=== PATIENT | female | born 1985 | race Caucasian/White ===

== ENCOUNTER 2017-08-30 15:15 | Emergency (ER) | payer OTHER ==
[2017-08-30 16:16] LABS: Urine Bacteria <20 /HPF (<20); Urine Culture Reflex Order NOT NEEDED; Urine RBC <5 /HPF (NONE SEEN)
[2017-08-30 16:17] LABS: Urine Blood NEGATIVE (NEG); Urine Glucose NEGATIVE (NEG); Urine Protein NEGATIVE (NEG); Urine pH 7.5 (5.0-7.0)
--- NOTE | 2017-08-30 16:40 | RAD REPORT ---
EXAM DESCRIPTION: US - OB Limited - 08/30/2017 4:26 pm CLINICAL HISTORY: no movement distress. Pelvic pain. COMPARISON: No comparisons FINDINGS: A limited examination was performed as per referring physician request. Twin A is in breech presentation. Normal movement was seen. heart rate of 148 beats per m inute was noted. Twin B is in vertex presentation. Normal movement was seen. heart rate 147 beats per tirso te was noted. The maternal adnexa show no worrisome findings. Qualitative amniotic fluid volumes are normal in both gestational sacs. IMPRESSION: Limited examination shows movement of twin gestations throughout the examination w ith normal heart rates for both chest stations.
--- NOTE | 2017-08-30 17:17 | EDPHYS ---
Physician Documentation [facility] Name: Betzaida Saldivar Age: 31 yrs Sex: Female : 1985 Arrival Date: 08/30/2017 Time: 15:18 Bed 26 Private MD: out of town, doctor ED Physician Deshaun Mojica HPI: 08/30 17:25 This 31 yrs old Female presents to ER via Ambulatory with complaints of 18 jr8 wks , no movement. 17:25 The patient presents to the emergency department with no movement. The estimated jr8 gestational age is 18 weeks. course: care: at a clinic, Leakage of Fluid: none appreciated, Ultrasound: the patient had an ultrasound, which was normal, Risk/complications: previous complications- uterine rupture. Previous pregnancies: in previous pregnancies patient has had. Associated signs and symptoms: The patient has no apparent associated signs or symptoms. The patient has not experienced similar symptoms in the past. The patient has not recently seen a physician. Stated that she was recently diagnosed with twins. Had not felt movement in a day or so. Wanted to make sure everything was ok . 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 - Social history:: Smoking status: Patient/guardian denies using tobacco. - Ebola Screening: : No symptoms or risks identified at this time. ROS: 17:25 Eyes: Negative for injury, pain, redness, and discharge, ENT: Negative for injury, jr8 pain, and discharge, Neck: Negative for injury, pain, and swelling, Cardiovascular: Negative for chest pain, palpitations, and edema, Respiratory: Negative for shortness of breath, cough, wheezing, and pleuritic chest pain, Abdomen/GI: Negative for abdominal pain, nausea, vomiting, diarrhea, and constipation, Back: Negative for injury and pain, MS/Extremity: Negative for injury and deformity, Skin: Negative for injury, rash, and discoloration, Neuro: Negative for headache, weakness, numbness, tingling, and seizure. Exam: 17:25 Eyes: Pupils equal round and reactive to light, extra-ocular motions intact. Lids and jr8 lashes normal. Conjunctiva and sclera are non-icteric and not injected. Cornea within normal limits. Periorbital areas with no swelling, redness, or edema. ENT: Nares patent. No nasal discharge, no septal abnormalities noted. Tympanic membranes are normal and external auditory canals are clear. Oropharynx with no redness, swelling, or masses, exudates, or evidence of obstruction, uvula midline. Mucous membranes moist. Neck: Trachea midline, no thyromegaly or masses palpated, and no cervical lymphadenopathy. Supple, full range of motion without nuchal rigidity, or vertebral point tenderness. No Meningismus. Cardiovascular: Regular rate and rhythm with a normal S1 and S2. No gallops, murmurs, or rubs. Normal PMI, no JVD. No pulse deficits. Respiratory: Lungs have equal breath sounds bilaterally, clear to auscultation and percussion. No rales, rhonchi or wheezes noted. No increased work of breathing, no retractions or nasal flaring. Abdomen/GI: Soft, non-tender, with normal bowel sounds. No distension or tympany. No guarding or rebound. No evidence of tenderness throughout. Back: No spinal tenderness. No costovertebral tenderness. Full range of motion. Skin: Warm, dry with normal turgor. Normal color with no rashes, no lesions, and no evidence of cellulitis. MS/ Extremity: Pulses equal, no cyanosis. Neurovascular intact. Full, normal range of motion. Neuro: Awake and alert, GCS 15, oriented to person, place, time, and situation. Cranial nerves II-XII grossly intact. Motor strength 5/5 in all extremities. Sensory grossly intact. Cerebellar exam normal. Normal gait. Vital Signs: 15:29 BP 129 / 90; Pulse 90; Resp 18; Pulse Ox 99% ; Weight 77.11 kg; Height 6 ft. 0 in. sv (182.88 cm); Pain 5/10; 16:00 BP 1 / ???; Pulse 92; Resp 18; Pulse Ox 99% ; tl3 15:29 Body Mass Index 23.06 (77.11 kg, 182.88 cm) MDM: 16:52 Patient medically screened. jr8 17:15 Data reviewed: vital signs, nurses notes, lab test result(s), radiologic studies, jr8 ultrasound, and as a result, I will discharge patient. Data interpreted: Pulse oximetry: on room air is 99 %. Interpretation: normal. Counseling: I had a detailed discussion with the patient and/or guardian regarding: the historical points, exam findings, and any diagnostic results supporting the discharge/admit diagnosis, lab results, radiology results, the need for outpatient follow up, an OB/Gyne specialist, to return to the emergency department if symptoms worsen or persist or if there are any questions or concerns that arise at home. 08/30 15:33 Order name: Urine Microscopic Only; Complete Time: 16:43 rn 08/30 16:05 Order name: Urine Dipstick--Ancillary (enter results); Complete Time: 16:43 dh3 08/30 15:33 Order name: Urine Dipstick-Ancillary (obtain specimen); Complete Time: 15:57 rn 08/30 15:33 Order name: OB Limited; Complete Time: 16:43 rn 08/30 16:06 Order name: Urine --Ancillary (enter results); Complete Time: 16:43 dh3 Administered Medications: No medications were administered Disposition: 18:36 Co-signature as Attending Physician, Deshaun Mojica MD. rn Disposition: 08/30/17 17:17 Discharged to Home. Impression: state. - Condition is Stable. - Discharge Instructions: Medicines During , Heartburn During , Second Trimester of , Kncl-sz-Hvud. - Medication Reconciliation Form, Thank You Letter, Antibiotic Education, Prescription Opioid Use form. - Follow up: Private Physician; When: 2 - 3 days; Reason: Recheck today's complaints, Continuance of care, Re-evaluation by your physician. - Problem is new. - Symptoms have improved. Signatures: Dispatcher [employer] Darlene Sharp RN RN sv Nieto, Roman, MD MD rn Roszak, Josh, PA PA jr8 Jami Vila RN RN tl3 Corrections: (The following items were deleted from the chart) 17:17 17:17 08/30/2017 17:17 Discharged to Home. Impression: state; 18 weeks jr8 gestation of . Condition is Stable. Forms are Medication Reconciliation Form, Thank You Letter, Antibiotic Education, Prescription Opioid Use. Follow up: Private Physician; When: 2 - 3 days; Reason: Recheck today's complaints, Continuance of care, Re-evaluation by your physician. Problem is new. Symptoms have improved. jr8 17:45 17:17 08/30/2017 17:17 Discharged to Home. Impression: state. Condition is tl3 Stable. Forms are Medication Reconciliation Form, Thank You Letter, Antibiotic Education, Prescription Opioid Use. Follow up: Private Physician; When: 2 - 3 days; Reason: Recheck today's complaints, Continuance of care, Re-evaluation by your physician. Problem is new. Symptoms have improved. jr8
--- NOTE | 2017-08-30 17:17 | ER ---
Nurse's Notes [facility] Name: Betzaida Saldivar Age: 31 yrs Sex: Female : 1985 Arrival Date: 08/30/2017 Time: 15:18 Bed 26 Private MD: out of town, doctor Diagnosis: state Presentation: 08/30 15:27 Presenting complaint: Patient states: decreased movement x 2 days. Pt is only sv aware that she is having twins by an US that was done at [facility]. Transition of care: patient was not received from another setting of care. Onset of symptoms was August 28, 2017. Risk Assessment: Do you want to hurt yourself or someone else? Patient reports no desire to harm self or others. Care prior to arrival: None. 15:27 Method Of Arrival: Ambulatory sv 15:27 Acuity: TIKI 3 sv 18:34 Initial Sepsis Screen: Does the patient meet any 2 criteria? No. Patient's initial tl3 sepsis screen is negative. Does the patient have a suspected source of infection? No. Patient's initial sepsis screen is negative. Triage Assessment: 15:27 General: Appears in no apparent distress. comfortable, Behavior is calm, cooperative, sv appropriate for age. Pain: Complains of pain in left lower quadrant Pain currently is 5 out of 10 on a pain scale. Pain began 2-3 days ago. Neuro: Level of Consciousness is awake, alert, obeys commands, Oriented to person, place, time, situation, Moves all extremities. Full function Gait is steady, Speech is normal. Respiratory: Respiratory effort is even, unlabored, Respiratory pattern is regular, symmetrical. Derm: Skin is normal. 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 - Social history:: Smoking status: Patient/guardian denies using tobacco. - Ebola Screening: : No symptoms or risks identified at this time. Screenin:12 Abuse screen: Denies threats or abuse. Nutritional screening: No deficits noted. tl3 Tuberculosis screening: No symptoms or risk factors identified. Fall Risk None identified. Assessment: 15:40 Reassessment: Informed Leana in US pt's urine test is positive. sv 17:12 General: Appears in no apparent distress. comfortable, well groomed, well developed, tl3 well nourished, Behavior is calm, cooperative, appropriate for age. Pain: Denies pain. Neuro: Level of Consciousness is awake, alert, obeys commands, Oriented to person, place, time, situation, Appropriate for age. Cardiovascular: Patient's skin is warm and dry. Respiratory: Airway is patent Respiratory effort is even, unlabored, Respiratory pattern is regular, symmetrical. GI: No signs and/or symptoms were reported involving the gastrointestinal system. : pt 5 month with twins, abdomen is round and firm Reports. : Reports not feeling movement of twins. EENT: No signs and/or symptoms were reported regarding the EENT system. Derm: No signs and/or symptoms reported regarding the dermatologic system. Musculoskeletal: No signs and/or symptoms reported regarding the musculoskeletal system. Vital Signs: 15:29 BP 129 / 90; Pulse 90; Resp 18; Pulse Ox 99% ; Weight 77.11 kg; Height 6 ft. 0 in. sv (182.88 cm); Pain 5/10; 16:00 BP 1 / ???; Pulse 92; Resp 18; Pulse Ox 99% ; tl3 15:29 Body Mass Index 23.06 (77.11 kg, 182.88 cm) sv ED Course: 15:18 Patient arrived in ED. mr 15:18 out of town, doctor is Private Physician. mr 15:28 Triage completed. sv 15:30 Arm band placed on left wrist. sv 15:30 Patient placed in waiting room. Urine obtained. Urine : positive. US ordered. sv 16:07 Patient taken to ultrasound. via wheelchair. lc3 16:26 US OB Limited In Process Unspecified. EDMS 16:33 Ultrasound completed. Patient tolerated well. Patient moved back from ultrasound. lc3 16:44 Diego Ji PA is PHCP. jr8 16:44 Deshaun Mojica MD is Attending Physician. jr8 17:12 Jami Vila, RN is Primary Nurse. tl3 17:12 Patient has correct armband on for positive identification. Bed in low position. Adult tl3 w/ patient. 17:12 No provider procedures requiring assistance completed. Patient did not have IV access tl3 during this emergency room visit. Administered Medications: No medications were administered Outcome: 17:17 Discharge ordered by MD. denise 17:45 Patient left the ED. tl3 18:33 Discharged to home ambulatory. tl3 18:33 Condition: good 18:33 Discharge instructions given to patient, family, Instructed on discharge instructions, follow up and referral plans. Signatures: Dispatcher [employer] EDMS Darlene Balderas, RN Yamini Gordon mr Diego Ji, Ricky Ham Tammy, FAM RN tl3
== END 2017-08-30 17:45 | disposition home or self-care (01) ==
LOC: ER 15:15
DX: O26.892 Other specified pregnancy related conditions, second trimester (principal); Z3A.18 18 weeks gestation of pregnancy
CPT/HCPCS: 76815; 81003; 81015; 81025; 99284

== ENCOUNTER 2018-12-09 02:45 | Emergency (ER) | payer OTHER, SELFPAY ==
[2018-12-09] MEDS ORDERED: LORAZEPAM 1 MG TABLET ONE (03:10)
--- NOTE | 2018-12-09 03:38 | ER ---
Nurse's Notes [facility] Name: Betzaida Saldivar Age: 33 yrs Sex: Female : 1985 Arrival Date: 12/09/2018 Time: 02:47 Bed 17 Private MD: Diagnosis: Palpitations;Tachycardia, unspecified Presentation: 12/09 02:55 Presenting complaint: Patient states: while having intercourse she went into SVT. pt ak1 has not had her metoprolol in a week. pt stated she took 0.4mg SL nitro at 0240. pt denies SOB, denies N/V. Transition of care: patient was not received from another setting of care. Onset of symptoms was December 09, 2018. Risk Assessment: Do you want to hurt yourself or someone else? Patient reports no desire to harm self or others. Initial Sepsis Screen: Does the patient meet any 2 criteria? No. Patient's initial sepsis screen is negative. Does the patient have a suspected source of infection? No. Patient's initial sepsis screen is negative. Note pt stated she "feels better and wants to just go home" after wheeling pt into ER17. Care prior to arrival: None. 02:55 Acuity: TIKI 3 ak1 02:55 Method Of Arrival: Wheelchair ak1 Triage Assessment: 02:59 General: Appears in no apparent distress. Behavior is calm, cooperative. Pain: Denies ak1 pain. 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 - Social history:: Smoking status: Patient/guardian denies using tobacco. - Ebola Screening: : No symptoms or risks identified at this time. Screenin:00 Abuse screen: Denies threats or abuse. Denies injuries from another. Nutritional ak1 screening: No deficits noted. Tuberculosis screening: No symptoms or risk factors identified. Fall Risk None identified. Assessment: 03:00 Pain: Pain does not radiate. Pain began 30 min ago. ak1 03:02 General: Appears in no apparent distress. uncomfortable, Behavior is calm, cooperative, jd3 appropriate for age, anxious. Pain: Denies pain. Neuro: Level of Consciousness is awake, alert, obeys commands, Oriented to person, place, time, situation. Cardiovascular: Capillary refill < 3 seconds Patient's skin is warm and dry. Rhythm is regular. Respiratory: Airway is patent Respiratory effort is even, unlabored, Respiratory pattern is regular, symmetrical, Denies cough, shortness of breath. GI: No signs and/or symptoms were reported involving the gastrointestinal system. : No signs and/or symptoms were reported regarding the genitourinary system. EENT: No signs and/or symptoms were reported regarding the EENT system. Derm: Skin is intact, Skin is dry, Skin is normal, Skin temperature is warm. Musculoskeletal: Circulation, motion, and sensation intact. Range of motion: intact in all extremities. 03:12 Reassessment: pt refused IV and blood work. jd3 03:39 Reassessment: Patient appears in no apparent distress at this time. Patient and/or jd3 family updated on plan of care and expected duration. Pain level reassessed. Patient is alert, oriented x 3, equal unlabored respirations, skin warm/dry/pink. pt agreed to sign AMA form. pt with even and steady gait upon discharge. Patient states feeling better. Vital Signs: 02:54 BP 118 / 78; Pulse 97; Resp 18; Temp 97.8(TE); Pulse Ox 100% on R/A; Weight 56.7 kg ak1 (R); Height 6 ft. 0 in. (182.88 cm) (R); Pain 0/10; 03:40 BP 127 / 99; Pulse 96; Resp 19 S; Pulse Ox 100% on R/A; jd3 02:54 Body Mass Index 16.95 (56.70 kg, 182.88 cm) ak1 ED Course: 02:47 Patient arrived in ED. ds1 02:54 Arm band placed on Patient placed in an exam room, on a stretcher, on pulse oximetry, ak1 Patient notified of wait time. EKG completed in triage. Results shown to MD. 02:57 Triage completed. ak1 02:58 Mayd Mcgee FNP-C is PHCP. snw 02:58 Benji Pierce MD is Attending Physician. snw 03:00 Patient has correct armband on for positive identification. Bed in low position. Call ak1 light in reach. 03:00 Patient maintains SpO2 saturation greater than 95% on room air. ak1 03:02 Jefry Perrin, FAM is Primary Nurse. jd3 03:11 desk monitor on. Pulse ox on. NIBP on. jd3 03:12 No provider procedures requiring assistance completed. jd3 03:21 XRAY Chest (1 view) In Process Unspecified. EDMS 03:39 Patient did not have IV access during this emergency room visit. jd3 Administered Medications: 03:06 Not Given (Patient Refused): NS 0.9% 1000 ml IV at 1 bolus Per protocol; 1000 mL bolus snw 03:06 Not Given (other intervention used): Ativan 1 mg IVP once snw 03:10 Drug: Ativan 2 mg Route: PO; jd3 03:40 Follow up: Response: No adverse reaction jd3 Outcome: 03:38 AMA AMA form signed jd3 03:38 Condition: stable 03:38 Discharge instructions given to patient, Instructed on follow up and referral plans. Demonstrated understanding of follow-up care. 03:41 Patient left the ED. jd3 Signatures: Dispatcher [employer] EDWI Mady Mcgee, DEISY TRAFFIC MONITOR SPECIALIST-Samantha Cummings ds1 Masha Vieyra, RN RN ak1 Jefry Perrin, FAM RN jd3 Corrections: (The following items were deleted from the chart) 03:40 03:39 Reassessment: Patient appears in no apparent distress at this time. Patient jd3 and/or family updated on plan of care and expected duration. Pain level reassessed. Patient is alert, oriented x 3, equal unlabored respirations, skin warm/dry/pink. Patient states feeling better. jd3
--- NOTE | 2018-12-09 03:38 | EDPHYS ---
Physician Documentation [facility] Name: Betzaida Saldivar Age: 33 yrs Sex: Female : 1985 Arrival Date: 12/09/2018 Time: 02:47 Bed 17 Private MD: ED Physician Benji Pierce HPI: 12/09 03:09 This 33 yrs old Female presents to ER via Wheelchair with complaints of snw Irregular Pulse. 03:09 The patient presents with a history of heart racing. Context: The symptoms occur with snw strenuous activity. Onset: The symptoms/episode began/occurred suddenly. Duration: The patient or guardian reports a single episode, that lasted 20 minute(s). Modifying factors: The symptoms are aggravated by pt missed a few metoprolol doses. Associated signs and symptoms: Pertinent positives: chest tightness. Severity of symptoms: At their worst the symptoms were severe in the emergency department the symptoms have improved markedly. The patient has experienced similar episodes in the past. sees Dr. Foy, last visit 2 months ago. Pt states she feels better and does not want lab work or iv. EKG with NSR. 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 - Social history:: Smoking status: Patient/guardian denies using tobacco. - Ebola Screening: : No symptoms or risks identified at this time. ROS: 03:08 Constitutional: Negative for fever, chills, and weight loss, Eyes: Negative for injury, snw pain, redness, and discharge, ENT: Negative for injury, pain, and discharge, Neck: Negative for injury, pain, and swelling. 03:08 Abdomen/GI: Negative for abdominal pain, nausea, vomiting, diarrhea, and constipation, Back: Negative for injury and pain, : Negative for injury, bleeding, discharge, and swelling, MS/Extremity: Negative for injury and deformity, Skin: Negative for injury, rash, and discoloration, Neuro: Negative for headache, weakness, numbness, tingling, and seizure. 03:08 Cardiovascular: Positive for chest pain, palpitations. 03:08 Respiratory: Positive for shortness of breath, at rest. 03:08 Psych: Positive for "freaked out". Exam: 03:06 Head/Face: Normocephalic, atraumatic. snw 03:06 ENT: Nares patent. No nasal discharge, no septal abnormalities noted. Tympanic membranes are normal and external auditory canals are clear. Oropharynx with no redness, swelling, or masses, exudates, or evidence of obstruction, uvula midline. Mucous membranes moist. Neck: Trachea midline, no thyromegaly or masses palpated, and no cervical lymphadenopathy. Supple, full range of motion without nuchal rigidity, or vertebral point tenderness. No Meningismus. Chest/axilla: Normal chest wall appearance and motion. Nontender with no deformity. No lesions are appreciated. Cardiovascular: Regular rate and rhythm with a normal S1 and S2. No gallops, murmurs, or rubs. Normal PMI, no JVD. No pulse deficits. Abdomen/GI: Soft, non-tender, with normal bowel sounds. No distension or tympany. No guarding or rebound. No evidence of tenderness throughout. Back: No spinal tenderness. No costovertebral tenderness. Full range of motion. Skin: Warm, dry with normal turgor. Normal color with no rashes, no lesions, and no evidence of cellulitis. MS/ Extremity: Pulses equal, no cyanosis. Neurovascular intact. Full, normal range of motion. Neuro: Awake and alert, GCS 15, oriented to person, place, time, and situation. Cranial nerves II-XII grossly intact. Motor strength 5/5 in all extremities. Sensory grossly intact. Cerebellar exam normal. Normal gait. 03:06 Constitutional: The patient appears alert, awake, anxious, frail, thin 03:06 Eyes: Pupils: equal, round, and reactive to light and accomodation, right pupil is approximately 3.5 mm(s), left pupil is approximately 3.5 mm(s), Extraocular movements: no acute changes, Conjunctiva: normal. 03:06 Psych: Behavior/mood is anxious, Affect is animated, Oriented to person, place, time. Vital Signs: 02:54 BP 118 / 78; Pulse 97; Resp 18; Temp 97.8(TE); Pulse Ox 100% on R/A; Weight 56.7 kg ak1 (R); Height 6 ft. 0 in. (182.88 cm) (R); Pain 0/10; 03:40 BP 127 / 99; Pulse 96; Resp 19 S; Pulse Ox 100% on R/A; jd3 02:54 Body Mass Index 16.95 (56.70 kg, 182.88 cm) ak1 MDM: 03:05 Patient medically screened. snw 03:21 Data reviewed: vital signs, nurses notes. Transition of care: After a detail discussion snw of the patient's case, care is transferred to Benji Pierce MD. 12/09 02:54 Order name: EKG; Complete Time: 02:55 ak1 12/09 03:01 Order name: XRAY Chest (1 view); Complete Time: 02:56 snw 12/09 02:54 Order name: EKG - Nurse/Tech; Complete Time: 03:00 ak1 12/09 03:01 Order name: Cardiac monitoring; Complete Time: 03:04 snw 12/09 03:01 Order name: O2 Per Protocol; Complete Time: 03:04 snw 12/09 03:01 Order name: O2 Sat Monitoring; Complete Time: 03:04 snw Administered Medications: 03:06 Not Given (Patient Refused): NS 0.9% 1000 ml IV at 1 bolus Per protocol; 1000 mL bolus snw 03:06 Not Given (other intervention used): Ativan 1 mg IVP once snw 03:10 Drug: Ativan 2 mg Route: PO; jd3 03:40 Follow up: Response: No adverse reaction jd3 Disposition: 12/09/18 03:37 Patient has left against medical advice. Impression: Palpitations, Tachycardia, unspecified. - Patients states they are going to Home. - Condition is Undetermined. Follow up: Private Physician; When: Upon discharge from the Emergency Department; Reason: Recheck today's complaints, Continuance of care, Re-evaluation by your physician. - Problem is new. - Symptoms have improved. Addendum: 12/11/2018 07:44 Co-signature as Attending Physician, Benji Pierce MD I agree with the assessment and c ramirez plan of care. Signatures: Dispatcher [employer] Benji Mcdermott MD MD cha Therrien, Mady, CHAIR PAD MAKER-C CHAIR PAD MAKER-Csnw Masha Vieyra, RN RN ak1 Jefry Perrin, RN RN jd3 Corrections: (The following items were deleted from the chart) 12/09 03:10 03:01 IV Saline Lock ordered. [facility] jd3 03:10 03:01 Labs collected and sent ordered. [facility] jd3 03:41 03:37 12/09/2018 03:37 Patients has left against medical advice. Impression: mary Palpitations; Tachycardia, unspecified. Patient states they are going to Home. Condition is Undetermined. Follow up: Private Physician; When: Upon discharge from the Emergency Department; Reason: Recheck today's complaints, Continuance of care, Re-evaluation by your physician. Problem is new. Symptoms have improved. vic
[2018-12-09 03:45] VITALS: TEMP 97.8; O2SAT 100
[2018-12-09 03:46] VITALS: BP 127/99
--- NOTE | 2018-12-09 07:15 | RAD REPORT ---
EXAM DESCRIPTION: RAD - Chest Single View - 12/09/2018 3:21 am CLINICAL HISTORY: Chest pain COMPARISON: May 2017 TECHNIQUE: AP portable chest image was obtained 0314 hours . FINDINGS: Lungs are clear. Heart and vasculature are normal. No measurable pleural effusion and no p neumothorax. No acute bony abnormality seen. No acute aortic findings suspected. IMPRESSION: No acute cardiopulmonary process. No significant interval change.
--- NOTE | 2018-12-09 07:23 | EKG ---
Test Date: 2018-12-09 Test Time: 02:54:03 [employer] Agent: MARIELA MEASUREMENT RESULTS: Intervals: Rate: 92 NM: 128 QRSD: 80 QT: 370 QTc: 457 [place]: P: 66 NM: 128 QRS: 69 T: 62 INTERPRETIVE STATEMENTS: Normal sinus rhythm Normal ECG Compared to ECG 05/21/2017 13:49:26 Sinus tachycardia no longer present T-wave abnormality no longer present Possible ischemia no longer present Electronically Signed On 12-09-18 07:22:53 CDT by Justin Bennett
== END 2018-12-09 03:41 | disposition left against medical advice (07) ==
LOC: ER 02:45
DX: R00.0 Tachycardia, unspecified (principal); E07.9 Disorder of thyroid, unspecified
CPT/HCPCS: 71045; 93005; 99284

== ENCOUNTER 2019-01-22 01:59 | Inpatient (IN) | payer SELFPAY ==
--- OUTSIDE RECORDS SUMMARY | 2019-01-22 02:01 | XMS REPORT ---
:[address] [facility] Address [address] [place] [address] [address]. [address] [place] [address] Care Team Providers Name Role Phone Unavailable Unavailable Unavailable Payers Payer Name Policy Type Policy Number Effective Date Expiration Date Problems This patient has no known problems. Allergies, Adverse Reactions, Alerts Allergy Allergy Status Severity Reaction(s) Onset Inactive Treating Comments Name Type Date Date Clinician No Known DA Active U 2013-09 Allergies -18 00:00:0 0 Medications This patient has no known medications. Results Test Description Test Time Test Comments Text Results Atomic Results Result Comments [facility] 2017-12-09 RUN DATE: THIRD 09:28:00 12/09/17 [facility] PAGE 1 RUN TIME: 1809 TRIMESTER Specimen Inquiry RUN USER : INTERFACE PATIENT: DARCIE RAMOS LOC: JAMES U #: [id number] AGE/SX: 32/F ROOM: [facility] RE12/01/17REG DR: Jami Rodriguez MD : 83 BED: A DIS: 12/07/17 STATUS: DIS IN TLOC: SPEC #: [id number] RECD: 12/02/17 STATUS: TANVIR RE # : [id number] SHERRY: 12/02/17- SUBM DR: Dorian Benjamin MD ENTERED: 12/02/17 SP TYPE: PLACIII OTHR DR: Brittany Murillo MD ORDERED: LEVEL V SURGICA CODES: MQ0020 - PLACENTA, NOS COPIES TO: Brittany Murillo MD [address] [place] [address] Dorian Benjamin MD [address] [address] PROCEDURES: LEVEL V SURGICA ( Incomplete) TISSUES: PLACENTA, NOS - PLACENTA - TWINS CLINICAL HISTORY 32 year old , 34 weeks, section, twins, no care, Hep C, prematurity (kr) FINAL DIAGNOSIS Placentas, twin gestation: - separate dichorionic diamniotic - combined placental weight: actual 717 gm/expected mean 727 gm (25-50th percentile) Placenta A (1 cord clamp): - third trimester villous architecture with congestion - acute subchorionitis (see Comment) - no inflammation of chorionic plate vessels or umbilical cord - umbilical cord: insertion 5 cm from margin, 3-vessel, 29 cm length - actual placental weight: 409 gm Placenta B (2 clamps): - third trimester villous architecture with congestion - umbilical cord: insertion 4 cm from margin, 3-vessel, 18 cm length - actual placental weight: 308 gm Tissue code 1 CPT code(s): 72686 x2 CONTINUED ON NEXT PAGE RUN DATE: 12/09/17 [facility] PAGE 2 RUN TIME: 1809 Specimen Inquiry RUN USER: INTERFACE SPEC #: [id number] PATIENT: DARCIE RAMOS #[id number] (Continued) FINAL DIAGNOSIS (Continued) cds/kr 12/09/17 @ 0912 GROSS DESCRIPTION The specimen is received in a formalin-filled container, labeled with the patient's name and designated "placenta, twins, twin A - one cord clamp and twin B - two cord clamps ". The specimen consists two separate placentas with membranes and umbilical cords attached. PLACENTA A Cord insertion: 5 cm from margin Cord length: 29 cm Number of vessels: 3 Cord color: Blue-mota- slightly green Other cord findings: None Membranes rupture site: 0 cm to margin Membrane color: Slightly green-mota Other membrane findings: Thickened and opaque The trimmed placental weight: 409 gm Disk measurement: 19 x 16 x 3 cm in greatest dimension Accessory lobes: None surface findings: Slightly green-blue, wrinkled, glistening Vasculature: Displays unremarkable blood vasculature Maternal surface: Lobulated and intact Parenchyma: Red, beefy, and spongy Parenchyma lesions: None Cassettes: A through D PLACENTA B Cord insertion: 4 cm from margin Cord length: 18 cm Number of vessels: 3 Cord color: Blue-mota Other cord findings: None Membranes rupture site: 0 cm to margin Membrane color: Mota Other membrane findings: Thickened and opaque The trimmed placental weight: 308 gm Disk measurement: 18 x 15 x 2.9 cm in greatest dimension Accessory lobes: None surface findings: Steel blue, wrinkled, glistening Vasculature: Displays unremarkable blood vasculature Maternal surface: Lobulated and intact Parenchyma: Red, beefy, and spongy Parenchyma lesions: None Cassettes: E through H CONTINUED ON NEXT PAGE RUN DATE: 12/09/17 [facility] PAGE 3 RUN TIME: 1809 Specimen Inquiry RUN USER: INTERFACE SPEC #: [id number] PATIENT: DARCIE RAMOS #[id number] (Continued) GROSS DESCRIPTION (Continued) barbie/amelia 12/02/17 @ 1114 MICROSCOPIC DESCRIPTION Placenta A has neutrophils in subchorionic fibrin consistent with acute subchorionitis. There is no inflammation of the umbilical cord vessels or chorionic plate vessels. Villous architecture for both placentas is mid to late third trimester with congestion. COMMENT : The inflammatory changes in Placenta A correspond to: Maternal inflammatory response: Stage 1 - early, Grade 1 - mild inflammatory response: None patricia/amelia 12/09/17 @ 0910 Signed Maurice Cho 12/09/17 0928 END OF REPORT
[2019-01-22] MEDS ORDERED: NA CHLORIDE 0.9% 1,000 ML ONE ×2 (02:46→03:14)
[2019-01-22 03:01] LABS: Absolute Lymphocytes (CBC) 0.9 K/uL (0.7-4.9); Basophils % 0.3 % (0-1.3); Hematocrit 34.6 % (36.0-45.0); Lymphocytes % 7.9 % (15.3-44.8); RBC Red Blood Cell Count 3.96 M/uL (3.86-4.86)
[2019-01-22 03:04] LABS: Protime INR 1.16
[2019-01-22 03:06] LABS: Urine Appearance CLEAR; Urine Bilirubin NEGATIVE (NEG); Urine Blood 1+ (NEG); Urine Color YELLOW; Urine Glucose NEGATIVE (NEG); Urine Protein NEGATIVE (NEG); Urine Specific Gravity <=1.005 (1.005-1.030); Urine Urobilinogen 0.2 mg/dL (0.2-1.0); Urine pH 6.5 (5.0-7.0)
[2019-01-22 03:10] LABS: Urine Microscopic Reflex ORDER UMIC
[2019-01-22 03:15] LABS: Barbiturates NEGATIVE (NEGATIVE); Benzodiazepines NEGATIVE (NEGATIVE); Cocaine NEGATIVE (NEGATIVE); METHAMPHETAM POSITIVE (NEGATIVE); Methadone NEGATIVE (NEGATIVE); Opiates NEGATIVE (NEGATIVE); Phencyclidine NEGATIVE (NEGATIVE); THC Cannibis NEGATIVE (NEGATIVE)
[2019-01-22 03:20] LABS: ALT/SGPT 38 U/L (12-78); AST/SGOT 23 U/L (15-37); Albumin 3.3 g/dL (3.4-5.0); Alkaline Phosphatase 83 U/L (45-117); BUN Blood Urea Nitrogen 12 mg/dL (7-18); Bicarbonate 27 mmol/L (21-32); Bilirubin Direct < 0.1 mg/dL (0-0.2); Bilirubin Total 0.4 mg/dL (0.2-1.0); Glucose Level 98 mg/dL (74-106); Potassium 3.1 mmol/L (3.5-5.1); Protein, Total 8.2 g/dL (6.4-8.2); Sodium Level 136 mmol/L (136-145)
[2019-01-22] MEDS ORDERED: ONDANSETRON 4 MG/2 ML VIAL ONE (03:29)
[2019-01-22] MEDS ORDERED: MORPHINE 2 MG/ML SYR ONE ×2 (03:29→05:18)
[2019-01-22] MEDS ORDERED: POTASSIUM 25 MEQ EFFERV TAB ONE (04:12)
[2019-01-22 04:40] LABS: Blood Morphology Comment NOT SEEN (NOT SEEN); Platelet Estimate ADEQ
[2019-01-22 04:50] LABS: Urine Culture Reflex Order REFLEXED
[2019-01-22 04:52] LABS: Urine Bacteria <20 /HPF (<20); Urine RBC <5 /HPF (NONE SEEN)
[2019-01-22] MEDS ORDERED: CEFTRIAXONE/SWI 1gm 1 GM/10 ML SYR ONE (05:12)
--- NOTE | 2019-01-22 05:17 | ER ---
Nurse's Notes [facility] Name: Betzaida Saldivar Age: 33 yrs Sex: Female : 1985 Arrival Date: 01/22/2019 Time: 02:00 Bed 8 Private MD: Diagnosis: Fever, unspecified;Abuse of non-psychoactive substances-iv DRUG ABUSE;Acute tubulo-interstitial nephritis-right sided;Hydronephrosis with ureteral stricture, not elsewhere classified;Bandemia;Hypokalemia Presentation: 01/22 02:00 Presenting complaint: EMS states: "the pt reported to have taken black tar heroin on jd3 Saturday and has been having side affects since then. she is reporting pain in her back and stomach as well as shaking. she reported to us that she has used heroin 20 days out of 30 days of last month.". Transition of care: patient was not received from another setting of care. Onset of symptoms was January 22, 2019. Risk Assessment: Do you want to hurt yourself or someone else? Patient reports no desire to harm self or others. Initial Sepsis Screen: Does the patient meet any 2 criteria? No. Patient's initial sepsis screen is negative. Does the patient have a suspected source of infection? No. Patient's initial sepsis screen is negative. Care prior to arrival: None. 02:00 Method Of Arrival: EMS: [facility] jd3 02:00 Acuity: TIKI 3 jd3 Historical: - Allergies: 02:03 No Known Allergies; jd3 - Home Meds: 02:03 metoprolol tartrate 25 mg Oral tab 1 tab once daily [Active]; jd3 - PMHx: 02:03 Tachycardia; thyroid issues; jd3 - PSHx: 02:03 Uterine rupture; ; jd3 - Immunization history:: Adult Immunizations up to date. - Social history:: Smoking status: Patient/guardian denies using tobacco, Patient uses street drugs, heroin. - Ebola Screening: : Patient negative for fever greater than or equal to 101.5 degrees Fahrenheit, and additional compatible Ebola Virus Disease symptoms. Screenin:05 Abuse screen: Denies threats or abuse. Nutritional screening: No deficits noted. jd3 Tuberculosis screening: No symptoms or risk factors identified. Fall Risk Ambulatory Aid- None/Bed Rest/Nurse Assist (0 pts). Gait- Normal/Bed Rest/Wheelchair (0 pts) Mental Status- Oriented to own ability (0 pts). Total Doe Fall Scale indicates No Risk (0-24 pts). Assessment: 02:06 General: Appears in no apparent distress. uncomfortable, slender, Behavior is calm, jd3 cooperative, appropriate for age, Denies drug use since Saturday. Pain: Complains of pain in back and abdomen Quality of pain is described as sharp, stabbing, squeezing. Neuro: Level of Consciousness is awake, alert, obeys commands, Oriented to person, place, time, situation. Cardiovascular: Denies chest pain, Capillary refill < 3 seconds Patient's skin is warm and dry. Respiratory: Airway is patent Respiratory effort is even, unlabored, Respiratory pattern is regular, symmetrical, Denies cough, shortness of breath. GI: Abdomen is round non-distended, Abd is soft X 4 quads Abdomen is tender to palpation X 4 quads. Reports lower abdominal pain, upper abdominal pain, nausea, normal bowel habits, Patient currently denies diarrhea, vomiting. : No signs and/or symptoms were reported regarding the genitourinary system. EENT: No signs and/or symptoms were reported regarding the EENT system. Derm: Skin is intact, Skin is dry, Skin is normal, Skin temperature is warm. Musculoskeletal: Circulation, motion, and sensation intact. Range of motion: intact in all extremities. 03:19 Reassessment: Patient appears in no apparent distress at this time. No changes from jd3 previously documented assessment. Patient and/or family updated on plan of care and expected duration. Pain level reassessed. Patient is alert, oriented x 3, equal unlabored respirations, skin warm/dry/pink. 04:38 Reassessment: Patient appears in no apparent distress at this time. Patient and/or jd3 family updated on plan of care and expected duration. Pain level reassessed. Patient is alert, oriented x 3, equal unlabored respirations, skin warm/dry/pink. pt tolerated PO fluids. 05:45 Reassessment: Patient appears in no apparent distress at this time. Patient and/or jd3 family updated on plan of care and expected duration. Pain level reassessed. Patient is alert, oriented x 3, equal unlabored respirations, skin warm/dry/pink. awaiting admission orders and room assignment. 07:05 Reassessment: Patient appears in no apparent distress at this time. Patient and/or hb family updated on plan of care and expected duration. Pain level reassessed. Patient is alert, oriented x 3, equal unlabored respirations, skin warm/dry/pink. 07:15 Reassessment: Attempted to call report to floor, receiving nurse unavailable at this hb time. 08:00 Reassessment: Patient appears in no apparent distress at this time. Patient and/or hb family updated on plan of care and expected duration. Pain level reassessed. Patient is alert, oriented x 3, equal unlabored respirations, skin warm/dry/pink. Vital Signs: 02:04 BP 116 / 79; Pulse 105; Resp 17 S; Temp 99.8(O); Pulse Ox 100% on R/A; Weight 61.69 kg jd3 (R); Height 6 ft. 0 in. (182.88 cm) (R); Pain 10/10; 03:19 BP 104 / 80; Pulse 99; Resp 17 S; Pulse Ox 100% on R/A; jd3 03:56 BP 121 / 74; Pulse 95; Resp 17 S; Pulse Ox 100% on R/A; Pain 8/10; jd3 04:39 BP 97 / 57; Pulse 94; Resp 16 S; Pulse Ox 100% on R/A; jd3 05:45 BP 98 / 63; Pulse 88; Resp 16 S; Pulse Ox 100% on R/A; jd3 07:30 BP 106 / 68; Pulse 84; Resp 16; Pulse Ox 100% on R/A; hb 02:04 Body Mass Index 18.44 (61.69 kg, 182.88 cm) jd3 ED Course: 02:00 Patient arrived in ED. jd3 02:02 Triage completed. jd3 02:04 Arm band placed on. jd3 02:05 Patient has correct armband on for positive identification. Bed in low position. Call jd3 light in reach. Side rails up X2. 02:16 Jefry Perrin, FAM is Primary Nurse. jd3 02:16 Estevan Cutler PA is PHCP. [facility] 02:16 Benji Pierce MD is Attending Physician. [facility] 02:34 Missed attempt(s): 20 gauge in right antecubital area. Bleeding controlled, band aid jd3 applied, catheter tip intact. 02:37 Inserted saline lock: 22 gauge in right forearm, using aseptic technique. Blood jd3 collected. 02:58 Chest Pa And Lat (2 Views) XRAY In Process Unspecified. EDMS 03:48 CT completed. Patient tolerated procedure well. Patient moved to CT via stretcher. Patient moved back from CT. 03:52 CT Abd/Pelvis - IV Contrast Only In Process Unspecified. EDMS 05:14 Dipak Perea is Hospitalizing Provider. vic 08:05 No provider procedures requiring assistance completed. Patient admitted, IV remains in hb place. Administered Medications: 02:56 Drug: NS 0.9% 1000 ml Route: IV; Rate: 1 bolus; Site: right forearm; jd3 03:18 Drug: levofloxacin 500 mg Volume: 100 ml; Route: IVPB; Infused Over: 60 mins; Site: jd3 right forearm; 04:15 Follow up: Response: No adverse reaction; IV Status: Completed infusion jd3 03:18 Drug: NS 0.9% 1000 ml Route: IV; Rate: 1 bolus; Site: right forearm; jd3 03:43 Drug: morphine 2 mg Route: IVP; Site: right forearm; jd3 04:30 Follow up: Response: No adverse reaction; RASS: Alert and Calm (0) jd3 03:43 Drug: Zofran 4 mg Route: IVP; Site: right forearm; jd3 04:30 Follow up: Response: No adverse reaction jd3 04:17 Drug: Potassium Effervescent Tablet 25 mEq Route: PO; jd3 05:15 Follow up: Response: No adverse reaction jd3 05:16 Drug: Rocephin 1 grams Route: IV; Rate: per protocol; Site: right forearm; jd3 05:21 Follow up: Response: No adverse reaction; IV Status: Completed infusion; IV Intake: [id number] 05:20 Drug: morphine 2 mg Route: IVP; Site: right forearm; jd3 05:28 Drug: NS 0.9% with KCl 20 mEq/L 1000 ml Route: IV; Rate: 125 ml/hr; Site: right forearm;jd3 Intake: 05:21 IV: 10ml; Total: 10ml. jd3 Outcome: 05:16 Decision to Hospitalize by Provider. vic 08:05 Admitted to Tele accompanied by tech, family with patient, via wheelchair, room 421, hb with chart, Report called to Sho OTTO 08:05 Condition: stable 08:05 Instructed on the need for admit, Demonstrated understanding of instructions. 08:10 Patient left the ED. hb Signatures: Dispatcher [employer] EDBenji Blake MD MD cha Mickail, Joel, PA PA jmm Hagler, Ervin eh Baxter, Heather, RN RN Jefry Alvarez RN RN jd3
--- NOTE | 2019-01-22 05:17 | EDPHYS ---
Physician Documentation [facility] Name: Betzaida Saldivar Age: 33 yrs Sex: Female : 1985 Arrival Date: 01/22/2019 Time: 02:00 Bed 8 Private MD: ED Physician Benji Pierce HPI: 01/22 02:24 This 33 yrs old Female presents to ER via EMS with complaints of abdominal jmm pain, fever. 02:24 The patient presents with abdominal pain. Onset: The symptoms/episode began/occurred jmm gradually, 3 day(s) ago. The symptoms do not radiate. Associated signs and symptoms: Pertinent positives: fever. The symptoms are described as achy. Modifying factors: The symptoms are alleviated by nothing, the symptoms are aggravated by nothing. This is a 33 year old female with a history of hep c, IV drug use that presents to the ED with complaints of fever, abdominal pain beginning this past Saturday after injecting heroin. Patient states having cold/flu like symptoms for a few days prior to injection. . Historical: - Allergies: 02:03 No Known Allergies; jd3 - Home Meds: 02:03 metoprolol tartrate 25 mg Oral tab 1 tab once daily [Active]; jd3 - PMHx: 02:03 Tachycardia; thyroid issues; jd3 - PSHx: 02:03 Uterine rupture; ; jd3 - Immunization history:: Adult Immunizations up to date. - Social history:: Smoking status: Patient/guardian denies using tobacco, Patient uses street drugs, heroin. - Ebola Screening: : Patient negative for fever greater than or equal to 101.5 degrees Fahrenheit, and additional compatible Ebola Virus Disease symptoms. ROS: 02:24 Respiratory: Negative for shortness of breath, cough, wheezing, and pleuritic chest jmm pain. 02:24 Constitutional: Positive for body aches, fever. 02:24 Abdomen/GI: Positive for abdominal pain. 02:24 Back: Positive for pain at rest, pain with movement, flank pain, radiated pain. 02:24 : Negative for urinary symptoms. 02:24 All other systems are negative. Exam: 02:24 Constitutional: This is a well developed, well nourished patient who is awake, alert, jmm and in no acute distress. Head/Face: atraumatic. Eyes: EOMI, no conjunctival erythema appreciated ENT: Moist Mucus Membranes Neck: Trachea midline, Supple Chest/axilla: Normal chest wall appearance and motion. Cardiovascular: Regular rate and rhythm. No edema appreciated Respiratory: Normal respirations, no respiratory distress appreciated 02:24 Skin: General appearance color normal MS/ Extremity: Moves all extremities, no obvious deformities appreciated, no edema noted to the lower extremities Neuro: Awake and alert, normal gait Psych: Behavior is normal, Mood is normal, Patient is cooperative and pleasant 02:24 Abdomen/GI: Inspection: abdomen appears normal, Bowel sounds: normal, Palpation: soft, moderate abdominal tenderness, in all quadrants. 02:24 Back: ROM is normal. 02:24 Musculoskeletal/extremity: ROM: intact in all extremities. Vital Signs: 02:04 BP 116 / 79; Pulse 105; Resp 17 S; Temp 99.8(O); Pulse Ox 100% on R/A; Weight 61.69 kg jd3 (R); Height 6 ft. 0 in. (182.88 cm) (R); Pain 10/10; 03:19 BP 104 / 80; Pulse 99; Resp 17 S; Pulse Ox 100% on R/A; jd3 03:56 BP 121 / 74; Pulse 95; Resp 17 S; Pulse Ox 100% on R/A; Pain 8/10; jd3 04:39 BP 97 / 57; Pulse 94; Resp 16 S; Pulse Ox 100% on R/A; jd3 05:45 BP 98 / 63; Pulse 88; Resp 16 S; Pulse Ox 100% on R/A; jd3 07:30 BP 106 / 68; Pulse 84; Resp 16; Pulse Ox 100% on R/A; hb 02:04 Body Mass Index 18.44 (61.69 kg, 182.88 cm) jd3 MDM: 02:23 Patient medically screened. [facility] 02:58 Data reviewed: vital signs, nurses notes, lab test result(s), EKG, radiologic studies, vic plain films. 01/22 02:15 Order name: Acetaminophen; Complete Time: 04:04 [facility] 01/22 02:15 Order name: Basic Metabolic Panel; Complete Time: 04:04 [facility] 01/22 02:15 Order name: CBC with Diff; Complete Time: 05:04 [facility] 01/22 02:15 Order name: ETOH Level; Complete Time: 04:04 [facility] 01/22 02:15 Order name: Hepatic Function; Complete Time: 04:04 [facility] 01/22 02:15 Order name: PT-INR; Complete Time: 04:04 [facility] 01/22 02:15 Order name: Ptt, Activated; Complete Time: 04:04 [facility] 01/22 02:15 Order name: Salicylate; Complete Time: 04:04 [facility] 01/22 02:15 Order name: Urine Drug Screen; Complete Time: 04:04 [facility] 01/22 02:19 Order name: Urinalysis [facility] 01/22 02:19 Order name: Test, Serum; Complete Time: 04:04 [facility] 01/22 02:20 Order name: Urinalysis; Complete Time: 05:04 [facility] 01/22 02:24 Order name: Procalcitonin [facility] 01/22 02:24 Order name: Lactate; Complete Time: 05:04 [facility] 01/22 02:24 Order name: Chest Pa And Lat (2 Views) XRAY; Complete Time: 15:39 [facility] 01/22 02:24 Order name: CT Abd/Pelvis - IV Contrast Only; Complete Time: 15:39 [facility] 01/22 02:24 Order name: Blood Culture Adult (2) [facility] 01/22 02:25 Order name: Procalcitonin; Complete Time: 04:04 [facility] 01/22 03:12 Order name: Urine Microscopic Only; Complete Time: 05:04 [facility] 01/22 03:13 Order name: Manual Differential; Complete Time: 05:04 [facility] 01/22 04:54 Order name: Urine Culture [facility] 01/22 02:15 Order name: Urine Test (obtain specimen); Complete Time: 02:44 [facility] 01/22 02:15 Order name: EKG; Complete Time: 02:16 [facility] 01/22 02:15 Order name: EKG - Nurse/Tech; Complete Time: 02:37 [facility] 01/22 02:15 Order name: IV Saline Lock; Complete Time: 02:43 [facility] 01/22 02:15 Order name: Labs collected and sent; Complete Time: 02:43 [facility] 01/22 02:15 Order name: Urine Dipstick-Ancillary (obtain specimen); Complete Time: 02:38 [facility] 01/22 04:05 Order name: PO challenge: JUICE; Complete Time: 04:18 vic Administered Medications: 02:56 Drug: NS 0.9% 1000 ml Route: IV; Rate: 1 bolus; Site: right forearm; jd3 03:18 Drug: levofloxacin 500 mg Volume: 100 ml; Route: IVPB; Infused Over: 60 mins; Site: jd3 right forearm; 04:15 Follow up: Response: No adverse reaction; IV Status: Completed infusion jd3 03:18 Drug: NS 0.9% 1000 ml Route: IV; Rate: 1 bolus; Site: right forearm; jd3 03:43 Drug: morphine 2 mg Route: IVP; Site: right forearm; jd3 04:30 Follow up: Response: No adverse reaction; RASS: Alert and Calm (0) jd3 03:43 Drug: Zofran 4 mg Route: IVP; Site: right forearm; jd3 04:30 Follow up: Response: No adverse reaction jd3 04:17 Drug: Potassium Effervescent Tablet 25 mEq Route: PO; jd3 05:15 Follow up: Response: No adverse reaction jd3 05:16 Drug: Rocephin 1 grams Route: IV; Rate: per protocol; Site: right forearm; jd3 05:21 Follow up: Response: No adverse reaction; IV Status: Completed infusion; IV Intake: [id number] 05:20 Drug: morphine 2 mg Route: IVP; Site: right forearm; jd3 05:28 Drug: NS 0.9% with KCl 20 mEq/L 1000 ml Route: IV; Rate: 125 ml/hr; Site: right forearm;jd3 Disposition: 02:58 Co-signature as Attending Physician, Benji Pierce MD I agree with the assessment and [facility] plan of care. Disposition: 01/22/19 05:16 Hospitalization ordered by Dipak Perea for Inpatient Admission. Preliminary diagnosis are Fever, unspecified, Abuse of non-psychoactive substances - iv DRUG ABUSE, Acute tubulo-interstitial nephritis - right sided, Hydronephrosis with ureteral stricture, not elsewhere classified, Bandemia, Hypokalemia. - Bed requested for Telemetry/MedSurg (Inpatient). - Status is Inpatient Admission. hb - Condition is Fair. - Problem is new. - Symptoms have improved. UTI on Admission? Yes Signatures: Dispatcher [employer] Loretta Spring RN RN dw Anderson, Corey, MD MD cha Mickail Estevan, PA PA jmm Bautista, Mickie, RN RN Jefry Perrin, RN RN jd3 Corrections: (The following items were deleted from the chart) 02:45 02:20 TEST, SERUM+SC.LAB.BRZ ordered. [facility] EDTN 03:22 02:45 Test, Urine ordered. [facility] 06:40 05:16 Hospitalization Ordered by Dipak Perea for Inpatient Admission. Preliminary diagnosis is Fever, unspecified; Abuse of non-psychoactive substances - iv DRUG ABUSE; Acute tubulo-interstitial nephritis - right sided; Hydronephrosis with ureteral stricture, not elsewhere classified; Bandemia; Hypokalemia. Bed requested for Telemetry/MedSurg (Inpatient). Status is Inpatient Admission. Condition is Fair. Problem is new. Symptoms have improved. UTI on Admission? Yes. [facility] 08:10 06:40 01/22/2019 05:16 Hospitalization Ordered by Dipak Perea for Inpatient hb Admission. Preliminary diagnosis is Fever, unspecified; Abuse of non-psychoactive substances - iv DRUG ABUSE; Acute tubulo-interstitial nephritis - right sided; Hydronephrosis with ureteral stricture, not elsewhere classified; Bandemia; Hypokalemia. Bed requested for Telemetry/MedSurg (Inpatient). Status is Inpatient Admission. Condition is Fair. Problem is new. Symptoms have improved. UTI on Admission? Yes. dw
[2019-01-22] MEDS ORDERED: NS KCL 20MEQ 1,000 ML IV ONE (05:24)
--- NOTE | 2019-01-22 06:10 | P.HP ---
Certification for Inpatient Patient admitted to: Observation With expected LOS: <2 Midnights Practitioner: I am a practitioner with admitting privileges, knowledge of patient current condition, hospital course, and medical plan of care. Services: Services provided to patient in accordance with Admission requirements found in Title 42 Section 412.3 of the Code of Federal Regulations Patient History Date of Service: 01/22/19 Reason for admission: Abdominal pain History of Present Illness: 33-year-old woman with a history of multiple substance abuse including heroin, amphetamine and fentanyl presented emergency department with a 4 day history of abdominal pain, and back pain and fever. She reports intermittent fever along with rigors. She also reports no stools. She denies any nausea or vomiting. Denies any dysuria but endorsed urgency and increased urinary frequency. She seems to relate onset of her symptoms to to the time she injected heroin or fentanyl. In the ED, patient noted to be afebrile, she has no leukocytosis, procalcitonin is within normal limit. Chest x-ray shows no acute disease. CT abdomen and pelvis suggest pyelonephritis of the right kidney and mild right hydronephrosis. No kidney stones identified. UA only has mild evidence of UTI. Toxicology screen is positive for amphetamine and alcohol. Patient is admitted for further management. Allergies No Known Allergies Allergy (Unverified 01/22/19 08:23) Home Medications: Aspirin Chewable [Aspirin Chewable*] 81 mg PO DAILY 01/22/19 Metoprolol Tartrate [Lopressor*] 1 tab PO BID 01/22/19 Cefuroxime [Ceftin] 500 mg PO BID 7 Days #14 tab 01/24/19 - Past Medical/Surgical History -: SVT -: Multisubstance abuse -: - Family History Mother -: Stroke Father -: Heart disease - Social History Smoking Status: Current every day smoker Alcohol use: Yes CD- Drugs: Yes Review of Systems Other: General: No unintentional weight loss. Eyes: No eye discharge, Respiratory: No cough, no shortness of breath. CVS: No chest pain, no palpitation, no lightheadedness. GI: No nausea no vomit, no constipation. She endorsed diarrhea Genitourinary: No dysuria, no incontinence, no hematuria. Musculoskeletal: No joint pains, or joint swelling, no gait instability. Neurology: No headache, no asymmetric, weakness, no problem with swallowing. Except as documented, all other systems reviewed and negative. Physical Examination - Physical Exam General: Alert, In no apparent distress, Oriented x3 HEENT: Normocephalic, PERRLA, Mucous membr. moist/pink Neck: Supple, JVD not distended, No Thyromegaly Respiratory: Clear to auscultation bilaterally, Normal air movement Cardiovascular: No edema, Normal pulses, Regular rate/rhythm, Normal S1 S2, No murmurs Capillary refill: <2 Seconds Gastrointestinal: Normal bowel sounds, Soft and benign, Non-distended, Tenderness (Diffuse tenderness, bilateral CVAT) Musculoskeletal: No swelling, No erythema Integumentary: No rashes Neurological: Normal speech, Normal strength at 5/5 x4 extr, Cranial nerves 3- 12 intact - Studies Laboratory Data (last 24 hrs) 01/22/19 02:37: PT 13.6 H, INR 1.16, APTT 27.1 01/22/19 02:37: WBC 10.9, Hgb 11.8 L, Hct 34.6 L, Plt Count 169 01/22/19 02:37: Sodium 136, Potassium 3.1 L, BUN 12, Creatinine 0.73, Glucose 98 , Total Bilirubin 0.4, AST 23, ALT 38, Alkaline Phosphatase 83 Assessment and Plan - Problems (Diagnosis) (1) Abdominal pain Status: Acute (2) Pyelonephritis Status: Acute (3) Polysubstance abuse Status: Acute (4) SVT (supraventricular tachycardia) Status: Acute - Plan Place patient under observation IV hydration with normal saline Start IV Rocephin Follow urine culture and blood cultures Obtain renal bladder US. Toradol IV p.r.n. for pain Metoprolol p.r.n. for tachycardia if her blood pressure will tolerate it. - Advance Directives Does patient have a Living Will: No Does patient have a Durable POA for Healthcare: No
[2019-01-22] MEDS ORDERED: ONDANSETRON 4 MG/2 ML VIAL IV PRN (08:15)
--- NOTE | 2019-01-22 08:16 | EKG ---
Test Date: 2019-01-22 Test Time: 02:31:28 Cogeneration Operator: MODESTA MEASUREMENT RESULTS: Intervals: Rate: 90 DC: 126 QRSD: 86 QT: 350 QTc: 428 Comins: P: 73 DC: 126 QRS: 75 T: 82 INTERPRETIVE STATEMENTS: Normal sinus rhythm Normal ECG Compared to ECG 12/09/2018 02:54:03 No significant changes Electronically Signed On 01-22-19 08:15:39 NEEDLE MAKER by Bk Lopez
--- NOTE | 2019-01-22 08:18 | RAD REPORT ---
EXAM DESCRIPTION: Scottie Jimenez (2 Views)01/22/2019 2:58 am CLINICAL HISTORY: Fever COMPARISON: December 2018 FINDINGS: The lungs appear clear of acute infiltrate. The heart is normal size IMPRESSION: No acute abnormalities displayed
[2019-01-22] MEDS: ACETAMINOPHEN 500 MG TAB PO PRN ×4 (08:42→23:57)
[2019-01-22 08:45] VITALS: BMI 18.4
[2019-01-22] MEDS: NA CHLORIDE 0.9% 1,000 ML IV SCH ×3 (08:46→21:26)
[2019-01-22] MEDS: ENOXAPARIN 40 MG/0.4 ML SQ SCH (08:47)
[2019-01-22] MEDS ORDERED: NA CHLORIDE 0.9% 1,000 ML IV ONE (10:25)
--- NOTE | 2019-01-22 12:31 | RAD REPORT ---
EXAM DESCRIPTION: CT - Abdomen Pelvis W Contrast - 01/22/2019 4:54 am CLINICAL HISTORY: Abdominal pain, fever COMPARISON: None Available. TECHNIQUE: CT of the abdomen and pelvis performed following IV administration of mL of Isovue 300. FINDINGS: Lung Bases: The visualized lung bases are clear. Bones: No destructive bone lesions identified. Abdomen: Liver: The liver has normal size and density. 1.1 cm hypodensity in the left hepatic lobe may repre sent a small cyst. Gallbladder: No calcified gallstones. Spleen, Pancreas, and Adrenal Glands: The spleen, pancreas, and adrenal glands are unremarkable. Kidneys: Mild right hydronephrosis. Perinephric fat stranding. Wedge-shaped hypodensities in the ri ght kidney. No obstructing ureteral calculus identified. Vasculature: The aorta and IVC have normal caliber and position. The portal vein is patent. The pro ximal visceral and renal arteries are patent. Stomach: The stomach and duodenum have normal course. Other: No free intraperitoneal air. No free fluid or lymphadenopathy. Pelvis: Bladder: Urinary bladder is unremarkable. Bowel: No dilated loops of large or small bowel. Appendix: Normal appendix. Pelvis: Calcified fibroid. IMPRESSION: 1. Findings compatible with pyelonephritis of the right kidney with mild right hydroneph rosis. No obstructing right ureteral calculus identified. 2. Small calcified uterine fibroid. This exam was performed according to our departmental dose-optimization program, which includes autom ated exposure control, adjustment of the mA and/or kV according to patient size and/or use of iterati ve reconstruction technique. Electronically signed by: Law Mishra 01/22/2019 4:15 AM RADIOLOGY NURSE Due to temporary technical issues with the PACS/Fluency reporting system, reports are being signed by the in house radiologist as a courtesy to ensure prompt reporting. The interpreting radiologist is f ully responsible for the content of the report.
[2019-01-22] MEDS ORDERED: POTASSIUM CL SA 10 MEQ TAB PO ONE (20:47)
[2019-01-22] MEDS: METOPROLOL TAR 25 MG TAB PO SCH (21:25)
[2019-01-23 03:49] LABS: Absolute Lymphocytes (CBC) 1.6 K/uL (0.7-4.9); Basophils % 1.4 % (0-1.3); Hematocrit 32.2 % (36.0-45.0); Lymphocytes % 20.3 % (15.3-44.8); MPV 9.6 fL (7.6-11.3); RBC Red Blood Cell Count 3.68 M/uL (3.86-4.86)
[2019-01-23 03:58] LABS: ALT/SGPT 37 U/L (12-78); AST/SGOT 32 U/L (15-37); Albumin 2.5 g/dL (3.4-5.0); Alkaline Phosphatase 62 U/L (45-117); BUN Blood Urea Nitrogen 5 mg/dL (7-18); Bicarbonate 25 mmol/L (21-32); Bilirubin Total 0.2 mg/dL (0.2-1.0); Glucose Level 72 mg/dL (74-106); Magnesium 1.7 mg/dL (1.8-2.4); Phosphorus 2.5 mg/dL (2.5-4.9); Potassium 3.8 mmol/L (3.5-5.1); Protein, Total 6.5 g/dL (6.4-8.2); Sodium Level 142 mmol/L (136-145)
[2019-01-23] MEDS ORDERED: POTASSIUM CL SA 10 MEQ TAB PO ONE (04:42)
[2019-01-23] MEDS ORDERED: MAGNESIUM SULFATE 1 gm IVPB 1 GM/100 ML BAG IV ONE (05:00)
[2019-01-23] MEDS: NA CHLORIDE 0.9% 1,000 ML IV SCH ×4 (05:45→21:10)
[2019-01-23] MEDS: POTASS/SODIUM PHOSPHATE 1 PKT POWD.PACK PO SCH ×3 (05:46→08:12)
[2019-01-23] MEDS: CEFTRIAXONE/SWI 1gm 1 GM/10 ML SYR IV SCH (05:46)
[2019-01-23] MEDS: ACETAMINOPHEN 500 MG TAB PO PRN ×3 (05:48→21:37)
[2019-01-23] MEDS: ENOXAPARIN 40 MG/0.4 ML SQ SCH (08:12)
[2019-01-23] MEDS: METOPROLOL TAR 25 MG TAB PO SCH ×2 (08:15→21:09)
[2019-01-23 12:21] VITALS: O2SAT 99
--- NOTE | 2019-01-23 13:39 | P.PN ---
Subjective Date of Service: 01/23/19 Chief Complaint: Abdominal pain Patient seen and examined at bedside with RN. Chart reviewed. Case discussed with family at bedside. No complaints to offer overnight. Having improvement than before. Review of Systems 10-point ROS is otherwise unremarkable Physical Examination - Vital Signs Temperature: 99.2 F Blood Pressure: 102/52 Pulse: 90 Respirations: 20 Pulse Ox (%): 99 - Physical Exam General: Alert, In no apparent distress HEENT: Atraumatic, PERRLA, EOMI Neck: Supple, JVD not distended Respiratory: Clear to auscultation bilaterally, Normal air movement Cardiovascular: Regular rate/rhythm, Normal S1 S2 Gastrointestinal: Normal bowel sounds, No tenderness Musculoskeletal: No tenderness Integumentary: No rashes Neurological: Normal speech, Normal tone, Normal affect Lymphatics: No axilla or inguinal lymphadenopathy - Studies Laboratory Data (last 24 hrs) 01/23/19 03:30: Sodium 142, Potassium 3.8, BUN 5 L, Creatinine 0.58, Glucose 72 L, Phosphorus 2.5, Magnesium 1.7 L, Total Bilirubin 0.2, AST 32, ALT 37, Alkaline Phosphatase 62 01/23/19 03:30: WBC 8.0 D, Hgb 11.0 L, Hct 32.2 L, Plt Count 136 L 01/22/19 20:08: Potassium 3.4 L Microbiology Data (last 24 hrs): 01/22/19 03:12 Blood - Blood Anaerobic Blood Culture - Final 01/22/19 03:07 Blood - Blood Anaerobic Blood Culture - Final Medications List Reviewed: Yes Assessment And Plan - Current Problems (Diagnosis) (1) Pyelonephritis Current Visit: Yes Status: Acute Plan: Patient with clinical pyelonephritis -currently on IV Rocephin will continue that here in the hospital -urine culture is positive for Gram negative rods -patient with fever of 102.5 last night -will continue with IV fluids and monitoring here in the hospital (2) Polysubstance abuse Current Visit: Yes Status: Acute Plan: Educated extensively regarding the need to stop. - Plan Pending clinical improvement at this time Discharge Plan: Home Plan to discharge in: Greater than 2 days - Code Status/Comfort Care Code Status Assessed: Yes Critical Care: No
[2019-01-24] MEDS: NA CHLORIDE 0.9% 1,000 ML IV SCH (05:01)
[2019-01-24] MEDS: CEFTRIAXONE/SWI 1gm 1 GM/10 ML SYR IV SCH (05:01)
[2019-01-24] MEDS: ACETAMINOPHEN 500 MG TAB PO PRN (05:07)
[2019-01-24 06:46] LABS: BUN Blood Urea Nitrogen 7 mg/dL (7-18); Bicarbonate 25 mmol/L (21-32); Glucose Level 106 mg/dL (74-106); Magnesium 1.6 mg/dL (1.8-2.4); Phosphorus 2.8 mg/dL (2.5-4.9); Sodium Level 146 mmol/L (136-145)
[2019-01-24] MEDS ORDERED: ENSURE ENLIVE 237 ML CAN PO SCH (09:00)
[2019-01-24] MEDS ORDERED: POTASSIUM CL SA 10 MEQ TAB PO ONE (09:00)
[2019-01-24] MEDS: ENOXAPARIN 40 MG/0.4 ML SQ SCH ×2 (09:00→09:37)
[2019-01-24] MEDS ORDERED: MAGNESIUM SULFATE 1 gm IVPB 1 GM/100 ML BAG IV ONE (09:00)
[2019-01-24] MEDS: METOPROLOL TAR 25 MG TAB PO SCH (09:37)
[2019-01-24 12:55] VITALS: BP 119/60; TEMP 99.2
--- NOTE | 2019-01-24 13:19 | P.DS ---
Admission Date: 01/23/19 Discharge Date: 01/25/19 Disposition: ROUTINE DISCHARGE Discharge Condition: GOOD Reason for Admission: Abdominal pain - Problems (1) Abdominal pain Status: Acute (2) Polysubstance abuse Status: Acute (3) Pyelonephritis Status: Acute Brief History of Present Illness: 33-year-old woman with a history of multiple substance abuse including heroin, amphetamine and fentanyl presented emergency department with a 4 day history of abdominal pain, and back pain and fever. She reports intermittent fever along with rigors. She also reports no stools. She denies any nausea or vomiting. Denies any dysuria but and dosed urgency and increased urinary frequency. She seems to relate onset of her symptoms to to the time she injected heroin or fentanyl. In the ED, patient noted to be afebrile, she has no leukocytosis, procalcitonin is within normal limit. Chest x-ray shows no acute disease. CT abdomen and pelvis suggest pyelonephritis of the right kidney and mild right hydronephrosis. No kidney stones identified. UA only has mild evidence of UTI. Toxicology screen is positive for amphetamine and alcohol. Patient is admitted for further management. Hospital Course: She was admitted and was started on IV antibiotics along with IV fluids. Patient with clinical pyelonephritis urine culture is positive for E. coli. Antibiotics were titrated Regarding polysubstance abuse , Educated extensively regarding the need to stop. Pain was controlled. Patient wanted to go home and is being discharged home today in a stable condition with advice to follow up with PCP in 1 week Vital Signs/Physical Exam: Temp Pulse Resp BP Pulse Ox 99.2 F 85 18 119/60 99 01/24/19 12:00 01/24/19 12:00 01/24/19 12:00 01/24/19 12:00 01/24/19 12:00 General: Alert, In no apparent distress HEENT: Atraumatic, Normocephalic Neck: Supple Respiratory: Clear to auscultation bilaterally Cardiovascular: Regular rate/rhythm, Normal S1 S2 Gastrointestinal: Soft and benign Neurological: Normal strength at 5/5 x4 extr Laboratory Data at Discharge: WBC 8.0 K/uL (4.3-10.9) D 01/23/19 03:30 Hgb 11.0 g/dL (12.0-15.0) L 01/23/19 03:30 Hct 32.2 % (36.0-45.0) L 01/23/19 03:30 Plt Count 136 K/uL (152-406) L 01/23/19 03:30 PT 13.6 SECONDS (9.5-12.5) H 01/22/19 02:37 INR 1.16 01/22/19 02:37 APTT 27.1 SECONDS (24.3-36.9) 01/22/19 02:37 Sodium 146 mmol/L (136-145) H 01/24/19 06:00 Potassium 3.0 mmol/L (3.5-5.1) L 01/24/19 06:00 BUN 7 mg/dL (7-18) 01/24/19 06:00 Creatinine 0.62 mg/dL (0.55-1.3) 01/24/19 06:00 Glucose 106 mg/dL (74-106) 01/24/19 06:00 Phosphorus 2.8 mg/dL (2.5-4.9) 01/24/19 06:00 Magnesium 1.6 mg/dL (1.8-2.4) L 01/24/19 06:00 Total Bilirubin 0.2 mg/dL (0.2-1.0) 01/23/19 03:30 AST 32 U/L (15-37) 01/23/19 03:30 ALT 37 U/L (12-78) 01/23/19 03:30 Alkaline Phosphatase 62 U/L (45-117) 01/23/19 03:30 Home Medications: Aspirin Chewable [Aspirin Chewable*] 81 mg PO DAILY 01/22/19 Metoprolol Tartrate [Lopressor*] 1 tab PO BID 01/22/19 Cefuroxime [Ceftin] 500 mg PO BID 7 Days #14 tab 01/24/19 New Medications: Cefuroxime [Ceftin] 500 mg PO BID 7 Days #14 tab Patient Discharge Instructions: F/u PCP in 1 week Diet: Regular Activity: Ad wesly
== END 2019-01-24 13:45 | disposition home or self-care (01) | DRG 690 ==
LOC: ER 01:59 → ERHOLD 06:49 → 4TH 08:02 → OBSVTOIN 01-23 12:35
PROVIDERS: ADMIT Internal Medicine; ATTEND Internal Medicine
DX: N10 Acute pyelonephritis (principal); B96.20 Unspecified Escherichia coli [E. coli] as the cause of diseases classified elsewhere; F15.10 Other stimulant abuse, uncomplicated; Z72.89 Other problems related to lifestyle
CPT/HCPCS: 36415; 71046; 74177; 80048; 80053; 80076; 80307; 80320; 80329; 81003; 81015; 83605; 83735; 84100; 84132; 84145; 84703; 85025; 85610; 85730; 87040; 87077; 87086; 87088; 87186; 93005; 94760; 96365; 96375; 99285; G0378; J0696; J1650; J2270; J2405; J3475; J7030; Q9967

== ENCOUNTER 2020-07-22 00:26 | Emergency (ER) | payer SELFPAY ==
--- OUTSIDE RECORDS SUMMARY | 2020-07-22 00:29 | XMS REPORT | Continuity of Care Document ---
:1985 Author Organization [facility] t Address [address] [place] [address] Care Team Providers Name Role Phone Tammy Covarrubias MD Attending Clinician Payers Payer Name Policy Type Policy Number Effective Date Expiration Date S ource Problems This patient has no known problems. Allergies, Adverse Reactions, Alerts Allergy Allergy Status Severity Reaction(s) Onset Inactive Treating Comm ents Source Name Type Date Date Clinician No Known DA Active [facility] [place] Medications This patient has no known medications. Procedures This patient has no known procedures. Encounters Start End Encounter Admission Attending Care Care Encounter Source Date/Time Date/Time Type Type Clinicians Facility Department ID 2018-10-21 2018-10-21 Telephone Pedro Covarrubias [facility] [id number] 00:00:00 00:00:00 Tammy Yun [id number] [place] [id number] [place] [id number] [place] 044 Building Results Test Description Test Time Test Comments Results Result [facility] e Comments PLACENTA THIRD 2017-12-09 TRIMESTER 09:28:00 --------RUN DATE: 12/09/17 [facility] PAGE 1 RUN TIME: 1809 Specimen Inquiry RUN USER: INTERFACE --------PATIENT: DARCIE RAMOS LOC: [place] U #: [id number] AGE/SX: 32/F ROOM: [facility] RE12/01/17REG DR: Jami Rodriguez MD : 83 BED: A DIS: 12/07/17 STATUS: DIS IN TLOC: -------- SPEC #: [id number] RECD: 12/02/17 STATUS: TANVIR REQ #: [id number] SHERRY: 12/02/17- SUBM DR: Dorian Benjamin MD ENTERED: 12/02/17 SP TYPE: PLACIII OTHR DR: Brittany Murillo MD ORDERED: LEVEL V SURGICA CODES: [id number] - PLACENTA, NOS COPIES TO: Brittany Murillo MD [address] [place] [address] Dorian Benjamin MD [address] [facility] [address] [place] [address] PROCEDURES: LEVEL V SURGICA (Incomplete) TISSUES: PLACENTA, NOS - PLACENTA - TWINS CLINICAL HISTORY 32 year old, 34 weeks, section, twins, no care, Hep [...] 308 gm Tissue code 1 CPT code(s): 64312 x2 CONTINUED ON NEXT PAGE --------RUN DATE: 12/09/17 [facility] PAGE 2 RUN TIME: 1809 Specimen Inquiry RUN USER: INTERFACE --------SPEC #: [id number] PATIENT: DARCIE RAMOS #[id number] (Continued) FINAL DIAGNOSIS (Continued) patricia/amelia 12/09/17 @ 0912 GROSS DESCRIPTION The specimen is received in a formalin-filled container, labeled with the patient's name and designated "placenta, twins, twin A - one cord clamp and twin B - two cord clamps". The specimen consists two separate placentas with membranes and umbilical cords attached. PLACENTA A Cord insertion: 5 cm from margin Cord length: 29 cm Number of vessels: 3 Cord color: [id number] green Other cord findings: None Membranes rupture [...] E through H CONTINUED ON NEXT PAGE --------RUN DATE: 10/01/18 [facility] PAGE 3 RUN TIME: 1809 Specimen Inquiry RUN USER: INTERFACE --------SPEC #: [id number] PATIENT: DARCIE RAMOS #[id number] (Continued) GROSS DESCRIPTION (Continued) barbie/amelia 12/02/17 @ 1114 MICROSCOPIC DESCRIPTION Placenta A has neutrophils in subchorionic fibrin consistent with acute subchorionitis. There is no inflammation of the umbilical cord vessels or chorionic plate vessels. Villous architecture for both placentas is mid to late third trimester with congestion. COMMENT: The inflammatory changes in Placenta A correspond to: Maternal inflammatory response: Stage 1 - early, Grade 1 - mild inflammatory response: None patricia/amelia 12/09/17 @ 0910 Signed Maurice Cho 12/09/17 0928 -------- END OF REPORT
--- NOTE | 2020-07-22 02:45 | EDPHYS ---
Physician Documentation [facility] Name: Betzaida Saldivar Age: 34 yrs Sex: Female : 1985 Arrival Date: 07/22/2020 Time: 00:29 Bed 4 Private MD: ED Physician Deshaun Mojica HPI: 07/22 01:00 This 34 yrs old Female presents to ER via Unassigned with complaints of rn thinks has Blood Clot, Weakness. 01:00 The patient presents with pain, that is chronic. The complaints affect the right calf. rn Onset: The symptoms/episode began/occurred 3 month(s) ago. Modifying factors: The symptoms are alleviated by nothing. the symptoms are aggravated by nothing. Severity of symptoms: At their worst the symptoms were moderate, in the emergency department the symptoms have improved. The patient has experienced similar episodes in the past. The patient has not recently seen a physician. Reports RLE swelling and intermittent pain for atleast 3 months, self-diagnosed with blood clot. No hx of blood clots, but took her grandmother's blood thinner for 10 days and states got better. No trauma. Walked here tonight to be evaluated. No fever. No chest pain or sob. . 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 - Family history:: not pertinent. - Social history:: Smoking status: Patient uses street drugs, heroin, Patient/guardian denies using. - Hospitalizations: : No recent hospitalization is reported. ROS: 01:00 Constitutional: Negative for fever, chills, and weight loss, Eyes: Negative for injury, rn pain, redness, and discharge, Cardiovascular: Negative for chest pain, palpitations, and edema, Respiratory: Negative for shortness of breath, cough, wheezing, and pleuritic chest pain, Abdomen/GI: Negative for abdominal pain, nausea, vomiting, diarrhea, and constipation, Back: Negative for injury and pain, MS/Extremity: + right lower extremity pain and swelling Skin: Negative for injury, rash, and discoloration, Neuro: Negative for headache, numbness, tingling, and seizure. Exam: 01:00 Constitutional: This is a well developed, well nourished patient who is somnolent, but rn walks and gets into bed on her own power. Head/Face: Normocephalic, atraumatic. Eyes: Pupils equal round and reactive to light, extra-ocular motions intact Cardiovascular: Regular rate and rhythm. No pulse deficits. Respiratory: No increased work of breathing, no retractions or nasal flaring. Skin: Warm, dry, no cyanosis MS/ Extremity: Pulses equal, no cyanosis. Equal circumference, no erythema, no focal tenderness. Neuro: Awake, somnolent, GCS 15, moves all 4 extremities Vital Signs: 01:00 BP 112 / 82; Pulse 94; Resp 18; Temp 98.2; Pulse Ox 100% on R/A; Weight 78.02 kg; wh Height 5 ft. 11 in. (180.34 cm); 02:48 BP 114 / 74; Pulse 81; Resp 18; Pulse Ox 100% ; ak2 01:00 Body Mass Index 23.99 (78.02 kg, 180.34 cm) wh MDM: 00:46 Patient medically screened. rn 02:42 Differential diagnosis: DVT, non-specific pain. Data reviewed: vital signs, nurses rn notes, radiologic studies, doppler, and as a result, I will discharge patient. Counseling: I had a detailed discussion with the patient and/or guardian regarding: the historical points, exam findings, and any diagnostic results supporting the discharge/admit diagnosis, radiology results, the need for outpatient follow up, to return to the emergency department if symptoms worsen or persist or if there are any questions or concerns that arise at home. Special discussion: I discussed with the patient/guardian in detail that at this point there is no indication for admission to the hospital. It is understood, however, that if the symptoms persist or worsen the patient needs to return immediately for re-evaluation. ED course: Doppler neg for dvt, will dc home. . 07/22 00:57 Order name: Extremity Venous Uni Ltd rn Administered Medications: No medications were administered Disposition: 07/22/20 02:44 Discharged to Home. Impression: Pain in right lower leg. - Condition is Stable. - Discharge Instructions: Musculoskeletal Pain. - Medication Reconciliation Form, Thank You Letter, Antibiotic Education, Prescription Opioid Use form. - Follow up: Private Physician; When: As needed; Reason: Recheck today's complaints, Re-evaluation by your physician. - Problem is an ongoing problem. - Symptoms have improved. Signatures: Dispatcher [employer] EDMS Deshaun Mojica MD MD rn Habalo, Winsy, RN RN Dhruv Hooper Corrections: (The following items were deleted from the chart) 04:16 02:44 07/22/2020 02:44 Discharged to Home. Impression: Pain in right lower leg. ak2 Condition is Stable. Forms are Medication Reconciliation Form, Thank You Letter, Antibiotic Education, Prescription Opioid Use. Follow up: Private Physician; When: As needed; Reason: Recheck today's complaints, Re-evaluation by your physician. Problem is an ongoing problem. Symptoms have improved. rn
--- NOTE | 2020-07-22 02:45 | ER ---
Nurse's Notes [facility] Name: Betzaida Saldivar Age: 34 yrs Sex: Female : 1985 Arrival Date: 07/22/2020 Time: 00:29 Bed 4 Private MD: Diagnosis: Pain in right lower leg Presentation: 07/22 01:00 Chief complaint: Patient states: C/O selling on right leg, states concern regarding blood clots. Coronavirus screen: Client denies travel out of the [place] in the last 14 days. Ebola Screen: Patient negative for fever greater than or equal to 101.5 degrees Fahrenheit, and additional compatible Ebola Virus Disease symptoms Patient denies exposure to infectious person. Initial Sepsis Screen: Does the patient meet any 2 criteria? HR > 90 bpm. Does the patient have a suspected source of infection? No. Patient's initial sepsis screen is negative. Risk Assessment: Do you want to hurt yourself or someone else? Patient reports no desire to harm self or others. Onset of symptoms is unknown. 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 - Family history:: not pertinent. - Social history:: Smoking status: Patient uses street drugs, heroin, Patient/guardian denies using. - Hospitalizations: : No recent hospitalization is reported. Screenin:00 Abuse screen: Denies threats or abuse. Denies injuries from another. Nutritional screening: No deficits noted. Tuberculosis screening: No symptoms or risk factors identified. Fall Risk None identified. Assessment: 01:00 General: Appears in no apparent distress. Behavior is calm, cooperative. Pain: Denies pain. Neuro: Level of Consciousness is awake, alert, obeys commands, Oriented to person, place, time, situation. Cardiovascular: Capillary refill < 3 seconds. Respiratory: Airway is patent Respiratory effort is even, unlabored, Respiratory pattern is regular, symmetrical. GI: Abdomen is flat, non-distended. : No signs and/or symptoms were reported regarding the genitourinary system. EENT: No signs and/or symptoms were reported regarding the EENT system. Derm: Skin is intact, is healthy with good turgor, Skin is pink, warm \T\ dry. normal. Musculoskeletal: Circulation, motion, and sensation intact. 02:35 Reassessment: Patient appears in no apparent distress at this time. Patient and/or jb4 family updated on plan of care and expected duration. Pain level reassessed. Patient is alert, oriented x 3, equal unlabored respirations, skin warm/dry/pink. Pt taken to ultra sound. Vital Signs: 01:00 BP 112 / 82; Pulse 94; Resp 18; Temp 98.2; Pulse Ox 100% on R/A; Weight 78.02 kg; Height 5 ft. 11 in. (180.34 cm); 02:48 BP 114 / 74; Pulse 81; Resp 18; Pulse Ox 100% ; ak2 01:00 Body Mass Index 23.99 (78.02 kg, 180.34 cm) ED Course: 00:29 Patient arrived in ED. bp1 00:46 Deshaun Mojica MD is Attending Physician. rn 01:00 Patient has correct armband on for positive identification. Bed in low position. Call light in reach. Side rails up X 1. Pulse ox on. NIBP on. 01:00 Arm band placed on right wrist. 01:15 Genny Pelaez, RN is Primary Nurse. 01:17 Triage completed. 02:33 Extremity Venous Uni Ltd US In Process Unspecified. EDMS 02:49 No apparent distress. ak2 02:49 No provider procedures requiring assistance completed. Patient did not have IV access ak2 during this emergency room visit. Administered Medications: No medications were administered Outcome: 02:44 Discharge ordered by . rn 02:49 Discharged to home ambulatory. ak2 02:49 Condition: good 02:49 Discharge instructions given to patient. 04:16 Patient left the ED. ak2 Signatures: Dispatcher [employer] EDMS Deshaun Mojica MD MD rn Bryson, James RN RN Genny Cui, FAM OTTO Nishi Mcclure bp1 Dhruv Hooper ak2
[2020-07-22 04:29] VITALS: TEMP 98.2; O2SAT 100
[2020-07-22 04:55] VITALS: BP 114/74
--- NOTE | 2020-07-22 09:12 | RAD REPORT ---
EXAM DESCRIPTION: Extremity Venous Uni Ltd 07/22/2020 2:52 AM CDT CLINICAL HISTORY: 34 years, Female, PAIN Extremity Venous Uni Ltd COMPARISON: None. FINDINGS: Multiple grayscale images as well as duplex Doppler ultrasound of right lower extremity we re performed. Right common femoral vein, right superficial femoral vein, right popliteal right posterior tibial and peroneal veins at the level of the calf were imaged. Spectral waveform demonstrate normal compress ibility, phasicity and augmentation. No intraluminal defects were seen. IMPRESSION: NO EVIDENCE FOR DEEP VEIN THROMBOSIS RIGHT LOWER EXTREMITY. Electronically signed by: Oleksandr Simms MD 07/22/2020 2:53 AM CDT Due to temporary technical issues with the PACS/Fluency reporting system, reports are being signed by the in house radiologist without review as a courtesy to ensure prompt reporting. The interpreting r adiologist is fully responsible for the content of the report.
== END 2020-07-22 04:16 | disposition home or self-care (01) ==
LOC: ER 00:26
DX: M79.661 Pain in right lower leg (principal)
CPT/HCPCS: 93971; 99283

== ENCOUNTER 2020-10-27 07:08 | Emergency (ER) | payer SELFPAY ==
--- OUTSIDE RECORDS SUMMARY | 2020-10-27 07:11 | XMS REPORT | Continuity of Care Document ---
:1985 Author Organization [facility] t Address [address] [place] [address] Care Team Providers Name Role Phone Mel LEAL S Attending Clinician Maikol GOODEN Attending Clinician Doctor Unassigned, Name Attending Clinician Unavailable Tammy Covarrubias MD Attending Clinician Payers Payer Name Policy Type Policy Number Effective Date Expiration Date S ource Problems This patient has no known problems. Allergies, Adverse Reactions, Alerts Allergy Allergy Status Severity Reaction(s) Onset Inactive Treating Comm ents Source Name Type Date Date Clinician No Known DA Active [facility] [place] Medications This patient has no known medications. Procedures This patient has no known procedures. Encounters Start End Encounter Admission Attending Care Care Encounter Source Date/Time Date/Time Type Type Clinicians Facility Department ID 2020-09-02 2020-09-03 Emergency [facility] [id number] 19:22:00 01:54:00 Katlyn Yun [id number] [place] [id number] [place] [id number] 2020-07-24 2020-07-24 Emergency [place], [facility] [id number] 20:19:00 23:46:00 Sandy Yun [id number] [place] [id number] [place] [id number] 2020-07-24 2020-07-24 Orders Doctor JANE [id number] 00:00:00 00:00:00 Only Unassigned, DANI [id number] [place] [facility] [id number] 2018-10-21 2018-10-21 Telephone Pedro Covarrubias [facility] [id number] 00:00:00 00:00:00 Tammy Yun [id number] [place] [id number] [facility] [id number] n[place] 044 Building Results Test Description Test Time Test Comments Results Result [facility] e Comments [facility] 2017-12-09 [place] 09:28:00 --------RUN DATE: 12/09/17 [facility] PAGE 1 RUN TIME: 1810 Specimen Inquiry RUN USER: INTERFACE --------PATIENT: DARCIE RAMOS LOC: POLI U #: [id number] AGE/SX: 32/F ROOM: 2051 RE12/01/17REG DR: Jami Rodriguez MD : 83 BED: A DIS: 12/07/17 STATUS: DIS IN TLOC: -------- SPEC #: [id number] RECD: 12/02/17 STATUS: TANVIR THORPE #: [id number] SHERRY: 12/02/17- DR: Dorian Benjamin MD ENTERED: 12/02/17 SP TYPE: PLACIII OTHR DR: Brittany Murillo MD ORDERED: LEVEL V SURGICA CODES: [id number] - PLACENTA, NOS COPIES TO: Brittany Murillo MD [address] [place], [place] [id number] Dorian Benjamin MD [address] [id number] PROCEDURES: LEVEL V SURGICA (Incomplete) TISSUES: PLACENTA, [...] 308 gm Tissue code 1 CPT code(s): 37940 x2 CONTINUED ON NEXT PAGE --------RUN DATE: 12/09/17 [facility] PAGE 2 RUN TIME: 1810 Specimen Inquiry RUN USER: INTERFACE --------SPEC #: [id number] PATIENT: DARCIE RAMOS #[id number] (Continued) FINAL DIAGNOSIS (Continued) patricia/amelia 12/09/17 @ 6789 GROSS DESCRIPTION The specimen is received in a formalin-filled container, labeled with the patient's name and designated "placenta, twins, twin A - one cord clamp and twin B - two cord clamps". The specimen consists two separate placentas with membranes and umbilical cords attached. PLACENTA A Cord insertion: 5 cm from margin Cord length: 29 cm Number of vessels: 3 Cord color: [id number] green Other cord findings: None Membranes rupture [...] H CONTINUED ON NEXT PAGE --------RUN DATE: 12/09/17 [facility] PAGE 3 RUN TIME: 1809 Specimen Inquiry RUN USER: INTERFACE --------SPEC #: [id number] PATIENT: DARCIE RAMOS #[id number] (Continued) GROSS DESCRIPTION (Continued) barbie/amelia 12/02/17 @ [...] Grade 1 - mild inflammatory response: None patricia/kr 12/09/17 @ 0910 Signed Maurice Cho 12/09/17 0928 -------- END OF REPORT
[2020-10-27 08:00] LABS: Urine Blood Negative (Negative); Urine Glucose Negative (Negative); Urine Protein Negative (Negative); Urine pH 8.5 (5.0-7.0)
--- NOTE | 2020-10-27 08:07 | RAD REPORT ---
EXAM DESCRIPTION: USExtremity Venous Uni Ltd10/27/2020 7:43 am CLINICAL HISTORY: Right leg pain COMPARISON: July 2020 FINDINGS: Right common femoral, superficial femoral, popliteal and right posterior tibial veins are compressible and demonstrate augmentation. Doppler demonstrates good flow. IMPRESSION: No evidence of deep venous thrombosis involving the right lower extremity.
[2020-10-27 08:56] LABS: Protime INR 0.99
[2020-10-27 09:02] LABS: Absolute Lymphocytes (CBC) 1.2 K/uL (0.7-4.9); Basophils % 0.3 % (0-1.3); Hematocrit 38.6 % (36.0-45.0); Lymphocytes % 19.9 % (15.3-44.8); MPV 8.9 fL (7.6-11.3); RBC Red Blood Cell Count 4.65 M/uL (3.86-4.86)
--- NOTE | 2020-10-27 09:12 | RAD REPORT ---
EXAM DESCRIPTION: Scottie Single View10/27/2020 7:47 am CLINICAL HISTORY: Chest pain COMPARISON: 2019 FINDINGS: The lungs appear clear of acute infiltrate. The heart is normal size IMPRESSION: No acute abnormalities displayed
--- NOTE | 2020-10-27 09:12 | RAD REPORT ---
EXAM DESCRIPTION: CT - Chest For Pe Angio - 10/27/2020 8:39 am CLINICAL HISTORY: Chest pain COMPARISON: None. TECHNIQUE: Dynamically enhanced axial 3 mm thick images of the chest were obtained during administra tion of <100> mL Isovue 370 IV contrast. Coronal and oblique reconstruction images were generated and reviewed. Exam utilizes a protocol for optimal evaluation of pulmonary arterial tree. Maximum intensity projections 3D imaging was utilized All CT scans are performed using dose optimization technique as appropriate and may include automated exposure control or mA/KV adjustment according to patient size. FINDINGS: A pulmonary embolus is not seen. A thoracic aortic aneurysm is not noted. Bovine aorta A pleural effusion is not seen. A pericardial effusion is not seen. A lung consolidation is not present. IMPRESSION: Negative for a pulmonary embolism.
[2020-10-27 10:34] LABS: BUN Blood Urea Nitrogen 14 mg/dL (7-18); Bicarbonate 27 mmol/L (21-32); Glucose Level 88 mg/dL (74-106); Magnesium 1.7 mg/dL (1.8-2.4); NT PRO-BNP 132 pg/mL (<125); Potassium 3.4 mmol/L (3.5-5.1); Sodium Level 140 mmol/L (136-145); Troponin (Emerg Dept Use Only) < 0.02 ng/mL (0.0-0.045)
--- NOTE | 2020-10-27 11:13 | ER ---
Nurse's Notes [facility] Name: Betzaida Saldivar Age: 35 yrs Sex: Female : 1985 Arrival Date: 10/27/2020 Time: 07:09 Bed 17 Private MD: Diagnosis: Chest pain, unspecified Presentation: 10/27 07:09 Chief complaint: EMS states: SHE SAYS SHE FELT A BLOOD CLOT TRAVEL UP HER LEG TO HER bp HEART. SHE STATES SHE WAS AT [facility] LAST NIGHT AND WAS DISCHARGED WITHOUT BEING TREATED OR GIVEN MEDS. Coronavirus screen: At this time, the client does not indicate any symptoms associated with coronavirus-19. Ebola Screen: No symptoms or risks identified at this time. Initial Sepsis Screen: Does the patient meet any 2 criteria? HR > 90 bpm. No. Patient's initial sepsis screen is negative. Does the patient have a suspected source of infection? No. Patient's initial sepsis screen is negative. Risk Assessment: Do you want to hurt yourself or someone else? Patient reports no desire to harm self or others. Onset of symptoms is unknown. 07:09 Method Of Arrival: EMS: [facility] bp 07:09 Acuity: TIKI 3 bp Triage Assessment: 07:12 General: Appears distressed, comfortable, Behavior is cooperative, appropriate for age, bp anxious. Pain: Complains of pain in chest. EENT: No deficits noted. Neuro: Level of Consciousness is awake, alert, obeys commands, Oriented to Appropriate for age. Cardiovascular: Rhythm is sinus tachycardia. Respiratory: No deficits noted. GI: No signs and/or symptoms were reported involving the gastrointestinal system. : No signs and/or symptoms were reported regarding the genitourinary system. Derm: No deficits noted. Musculoskeletal: No deficits noted. Historical: - Allergies: 07:12 No Known Allergies; bp - Home Meds: 07:12 None [Active]; bp - PMHx: 07:12 Tachycardia; thyroid issues; bp - Immunization history:: Adult Immunizations unknown. - Social history:: Smoking status: unknown. - Family history:: not pertinent. - Hospitalizations: : No recent hospitalization is reported. Screenin:14 Abuse screen: Denies threats or abuse. Denies injuries from another. Nutritional bp screening: No deficits noted. Tuberculosis screening: No symptoms or risk factors identified. Fall Risk None identified. Assessment: 07:14 General: SEE TRIAGE NOTE. bp 08:42 Reassessment: No changes from previously documented assessment. Patient and/or family bp updated on plan of care and expected duration. Pain level reassessed. PT RETURNED FROM CT. U/S COMPLETE, INITIAL READ UNREMARKABLE. Vital Signs: 07:09 BP 153 / 90; Pulse 103; Resp 13; Temp 98; Pulse Ox 100% ; bp 08:30 BP 143 / 99; Pulse 105; Resp 23; Pulse Ox 100% ; bp 09:30 BP 138 / 89; Pulse 87; Resp 14; Pulse Ox 100% ; bp 11:30 BP 127 / 84; Pulse 91; Resp 17; Temp 98.4; Pulse Ox 99% ; bp ED Course: 07:09 Patient arrived in ED. bp 07:10 Deshaun Mojica MD is Attending Physician. rn 07:12 Triage completed. bp 07:12 Arm band placed on. bp 07:14 Patient has correct armband on for positive identification. Bed in low position. Call bp light in reach. Side rails up X2. Adult w/ patient. bus driver/monitor on. Pulse ox on. NIBP on. 07:14 No provider procedures requiring assistance completed. Patient maintains SpO2 bp saturation greater than 95% on room air. 07:39 US Extremity Venous Unilateral Ltd In Process Unspecified. EDMS 07:47 XRAY Chest (1 view) In Process Unspecified. EDMS 08:01 Dennis Taylor, RN is Primary Nurse. bp 08:38 CT Chest For PE Angio In Process Unspecified. EDMS Administered Medications: No medications were administered Outcome: 11:11 Discharge ordered by . rn 11:58 Patient left the ED. mt Signatures: Dispatcher [employer] EDMS Deshaun Mojica MD MD rn [facility] Dennis Taylor, RN RN bp
--- NOTE | 2020-10-27 11:13 | EDPHYS ---
Physician Documentation [facility] Name: Betzaida Saldivar Age: 35 yrs Sex: Female : 1985 Arrival Date: 10/27/2020 Time: 07:09 Bed 17 Private MD: ED Physician Deshaun Mojica HPI: 10/27 07:38 This 35 yrs old Female presents to ER via EMS with complaints of Chest Pain. rn 07:38 The patient or guardian reports chest pain that is located primarily in the left rn lateral anterior chest. The pain does not radiate. Associated signs and symptoms: Pertinent positives: shortness of breath, Pertinent negatives: abdominal pain, diaphoresis, palpitations, syncope, vomiting. The chest pain is described as sharp, stabbing. Duration: The patient or guardian reports a single episode, that is still ongoing. Modifying factors: The symptoms are alleviated by nothing. the symptoms are aggravated by deep breath. Severity of pain: At its worst the pain was moderate in the emergency department the pain is unchanged. The patient has experienced similar episodes in the past. The patient has not recently seen a physician. Patient reports left sided chest pain that began this morning, associated with right lower extremity pain. Has not felt ill recently. Reports months ago diagnosed with a pulmonary embolism but not prescribed any anticoagulation. States takes a baby aspirin. No reason for blood clots.. Historical: - Allergies: 07:12 No Known Allergies; bp - Home Meds: 07:12 None [Active]; bp - PMHx: 07:12 Tachycardia; thyroid issues; bp - Immunization history:: Adult Immunizations unknown. - Social history:: Smoking status: unknown. - Family history:: not pertinent. - Hospitalizations: : No recent hospitalization is reported. ROS: 07:38 Constitutional: Negative for fever, chills, and weight loss, Eyes: Negative for injury, rn pain, redness, and discharge, ENT: Negative for injury, pain, and discharge, Neck: Negative for injury, pain, and swelling, Cardiovascular: Negative for palpitations, and edema, Respiratory: Negative for cough, wheezing Abdomen/GI: Negative for abdominal pain, nausea, vomiting, diarrhea, and constipation, Back: Negative for injury and pain, : Negative for injury, bleeding, discharge, and swelling, MS/Extremity: Negative for injury and deformity, Skin: Negative for injury, rash, and discoloration, Neuro: Negative for headache, weakness, numbness, tingling, and seizure. 07:38 All other systems are negative. rn Exam: 07:38 Constitutional: This is a well developed, well nourished patient who is awake, alert, rn and in no acute distress. Wide-awake and sitting upright Head/Face: Normocephalic, atraumatic. Eyes: Periorbital areas with no swelling, redness, or edema. ENT: No stridor Cardiovascular: Tachycardia, regular. No pulse deficits. Respiratory: No increased work of breathing, no retractions or nasal flaring. Abdomen/GI: Soft, non-tender Skin: Warm, dry MS/ Extremity: Pulses equal, no cyanosis. Neurovascular intact. Full, normal range of motion. Equal circumference. Neuro: Awake and alert, GCS 15, oriented to person, place, time, and situation. Cranial nerves II-XII grossly intact. Motor strength 5/5 in all extremities. Sensory grossly intact. Cerebellar exam normal. Normal gait. 08:37 ECG was reviewed by the Attending Physician. rn Vital Signs: 07:09 BP 153 / 90; Pulse 103; Resp 13; Temp 98; Pulse Ox 100% ; bp 08:30 BP 143 / 99; Pulse 105; Resp 23; Pulse Ox 100% ; bp 09:30 BP 138 / 89; Pulse 87; Resp 14; Pulse Ox 100% ; bp 11:30 BP 127 / 84; Pulse 91; Resp 17; Temp 98.4; Pulse Ox 99% ; bp MDM: 07:10 Patient medically screened. rn 09:14 Differential diagnosis: acute myocardial infarction, acute pericarditis, anxiety, rn coronary artery disease pericarditis, pleurisy, pneumonia, pneumothorax, pulmonary embolus. Data reviewed: vital signs, nurses notes, lab test result(s), EKG, radiologic studies, CT scan, and as a result, I will discharge patient. Data interpreted: junior systems analyst: rate is 100 beats/min, rhythm is normal sinus rhythm, regular, with no ectopy, Interpretation: normal rate, normal rhythm, Pulse oximetry: on room air is 100 %. Interpretation: normal. Counseling: I had a detailed discussion with the patient and/or guardian regarding: the historical points, exam findings, and any diagnostic results supporting the discharge/admit diagnosis, lab results, radiology results, the need for outpatient follow up, to return to the emergency department if symptoms worsen or persist or if there are any questions or concerns that arise at home. Special discussion: Based on the patient's history, exam, and Dx evaluation, there is no indication for emergent intervention or inpatient Tx. It is understood by the patient/guardian that if the Sx's persist or worsen they need to return immediately for re-evaluation. I discussed with the patient/guardian in detail that at this point there is no indication for admission to the hospital. It is understood, however, that if the symptoms persist or worsen the patient needs to return immediately for re-evaluation. ED course: No acute finding on CT chest or right lower extremity ultrasound. Will DC home with return precautions.. 10/27 07:10 Order name: Basic Metabolic Panel; Complete Time: 11:11 10/27 07:10 Order name: CBC with Diff; Complete Time: 09: 10/27 07:10 Order name: Magnesium; Complete Time: 11: 10/27 07:10 Order name: NT PRO-BNP; Complete Time: 11: 10/27 07:10 Order name: PT-INR; Complete Time: 09: 10/27 07:10 Order name: Troponin (emerg Dept Use Only); Complete Time: 11:11 10/27 07:10 Order name: XRAY Chest (1 view); Complete Time: 09:13 10/27 07:10 Order name: EKG; Complete Time: 07: 10/27 07:10 Order name: Cardiac monitoring; Complete Time: 08: rn 10/27 07:10 Order name: EKG - Nurse/Tech; Complete Time: 07:49 rn 10/27 07:11 Order name: CT Chest For PE Angio; Complete Time: 09: [facility] 10/27 07:11 Order name: US Extremity Venous Unilateral Ltd; Complete Time: : [facility] 10/27 08:00 Order name: Urine Dipstick-Ancillary; Complete Time: : EDMS 10/27 08:02 Order name: Urine --Ancillary (enter results) vt 10/27 07:10 Order name: IV Saline Lock; Complete Time: 08:43 rn 10/27 07:10 Order name: Labs collected and sent; Complete Time: 08:43 rn 10/27 07:10 Order name: O2 Per Protocol; Complete Time: 08: rn 10/27 07:10 Order name: O2 Sat Monitoring; Complete Time: : rn 10/27 07:13 Order name: Urine Test (obtain specimen); Complete Time: 07:49 rn EC:37 Rate is 99 beats/min. Rhythm is regular. QRS [place] is Normal. [place] interval is normal. QRS rn interval is normal. QT interval is normal. No Q waves. T waves are Normal. ST Segment is depressed in leads V5, V6. Clinical impression: NSR w/ Non-specific ST/T Changes. Interpreted by me. Reviewed by me. Administered Medications: No medications were administered Disposition Summary: 10/27/20 11:11 Discharge Ordered Location: Home rn Problem: new rn Symptoms: have improved rn Condition: Stable rn Diagnosis - Chest pain, unspecified rn Followup: rn - With: Private Physician - When: As needed - Reason: Recheck today's complaints, Re-evaluation by your physician Discharge Instructions: - Discharge Summary Sheet rn - Nonspecific Chest Pain, Adult rn Forms: - Medication Reconciliation Form rn - Thank You Letter rn - Antibiotic technology intern - Prescription Opioid Use rn Signatures: Dispatcher [employer] EDDeshaun Owusu MD MD rn Peltier, Brian, RN RN bp Corrections: (The following items were deleted from the chart) 07:40 07:38 Constitutional: Negative for fever, chills, and weight loss, Eyes: Negative for rn injury, pain, redness, and discharge, ENT: Negative for injury, pain, and discharge, Neck: Negative for injury, pain, and swelling, Cardiovascular: Negative for palpitations, and edema, Respiratory: Negative for cough, wheezing Abdomen/GI: Negative for abdominal pain, nausea, vomiting, diarrhea, and constipation, Back: Negative for injury and pain, : Negative for injury, bleeding, discharge, and swelling, MS/Extremity: Negative for injury and deformity, Skin: Negative for injury, rash, and discoloration, Neuro: Negative for headache, weakness, numbness, tingling, and seizure, rn 07:49 07:38 Constitutional: This is a well developed, well nourished patient who is awake, rn alert, and in no acute distress. Wide-awake and sitting upright rn
[2020-10-27 12:03] VITALS: TEMP 98; O2SAT 100
[2020-10-27 12:09] VITALS: BP 138/89
== END 2020-10-27 11:58 | disposition home or self-care (01) ==
LOC: ER 07:08
DX: R07.9 Chest pain, unspecified (principal)
CPT/HCPCS: 36415; 71045; 71275; 80048; 81003; 81025; 82565; 83735; 83880; 84484; 85025; 85610; 93005; 93971; 99284; Q9967